=== PATIENT | female | born 1950 | race Two or more races ===

== ENCOUNTER → 2024-04-01 12:42 | Outpatient (REF) | payer OTHER, SELFPAY | LOC: PAVMRI 12:42 | PROVIDERS: ATTENDING PHYSICIAN Emergency Medicine | DX: R42 Dizziness and giddiness (principal); M54.2 Cervicalgia; R51.9 Headache, unspecified | CPT/HCPCS: 70544; 70547; 70553; A9575 ==

== ENCOUNTER → 2024-04-02 12:25 | Outpatient (REF) | payer OTHER, SELFPAY | LOC: PAVMRI 12:25 | PROVIDERS: ATTENDING PHYSICIAN Emergency Medicine | DX: M54.2 Cervicalgia (principal); R51.9 Headache, unspecified | CPT/HCPCS: 72156; A9575 ==

== ENCOUNTER → 2024-08-12 16:59 | Outpatient (REF) | payer OTHER, SELFPAY | LOC: RAD 16:59 | PROVIDERS: ATTENDING PHYSICIAN Obstetrics & Gynecology Gynecologic Oncology; FAMILY PHYSICIAN Emergency Medicine | DX: C54.1 Malignant neoplasm of endometrium (principal); R91.8 Other nonspecific abnormal finding of lung field | CPT/HCPCS: 71260; 74177; Q9967 ==

== ENCOUNTER 2024-09-21 19:16 | Inpatient (IN) | payer OTHER, SELFPAY ==
[2024-09-21] VITALS (12 sets, daily range): BP systolic 102–154; BP diastolic 40–91; PULSE 2–85; BMI 38.2; BMI 35.6
[2024-09-21 13:44] LABS: % Basophils 0.6 % (0-2); % Eosinophils 6.9 % (0-6); % Immature Granulocytes 0.4 % (0-0.5); % Lymphocytes 34.3 % (20.5-51.1); % Monocytes 7.3 % (1.7-9.3); % Neutrophils 50.5 % (42.2-75.2); Absolute Eosinophils 0.3 10^3/uL (0-0.7); Absolute Lymphocytes 1.7 10^3/uL (1.2-3.4); Absolute Monocytes 0.4 10^3/uL (0.1-0.6); Absolute Neutrophils 2.5 10^3/uL (1.4-6.5); Hematocrit 28.9 % (37.0-47.0); Hemoglobin 9.5 g/dL (12.0-16.0); Mean Corp Hgb Conc. 32.9 g/dL (33.0-37.0); Mean Corpuscular Hgb 32.5 pg (27.0-31.0); Mean Platelet Volume 10.8 fL (7.4-10.4); Nucleated Red Blood Cells % 0 %; Platelet Count 91 10^3/uL (130-400); Red Blood Cell Count 2.92 10^6/uL (4.20-5.40); Red Cell Dist. Width 14.7 % (11.5-14.5)
[2024-09-21 13:53] LABS: ALT (SGPT) 21 U/L (0-35); AST (SGOT) 42 U/L (14-36); Albumin 3.5 g/dl (3.5-5.0); Alkaline Phosphatase 121 U/L (38-126); Blood Urea Nitrogen 13 mg/dl (7-17); Calcium 9.2 mg/dl (8.4-10.2); Carbon Dioxide 29 mmol/L (22-30); Chloride 102 mmol/L (98-107); Estimated Creatinine Clearance 36 ml/min; Glucose 136 mg/dl (70-99); Potassium 4.3 mmol/L (3.5-5.1); Sodium 139 mmol/L (135-145); Total Bilirubin 0.6 mg/dl (0.2-1.3); Total Protein 5.9 g/dl (6.3-8.2); eGFR 39.97
--- NOTE | 2024-09-21 14:08 | ED.GENMED ---
History of Present Illness
General
Chief Complaint: Change in Mental Status
Source: patient and family
Exam Limitations: none
Time Seen by Provider: 09/21/24 14:07
History of Present Illness
History of Present Illness:
74-year-old female presents with episodes of lethargy hypoxia ongoing low back pain. Son gave her a dose of his morphine 3 days ago for the back pain. Back pain started 2 weeks ago. Nontraumatic but occurred with lifting. Appears very
positional. Episode of syncope yesterday. Some nausea. Some vomiting recently. No fever chills chest pain. Shortness of breath is slightly worse than baseline. Has not been hospitalized in a few years. Stools have been normal.
Past History
Past History
ED Past Medical History: COPD, HTN, Hypercholesterolemia, NIDDM and Other (Known left bundle branch block)
ED Past Surgical History: Cholecystectomy, , Gynecological (Hysterectomy) and Orthopedic
Review of Systems
Review of Systems
All Other Systems: Not applicable
Constitutional: Denies fever or chills
Cardiac: Reports no symptoms
: Reports no symptoms
Phy Exam
Physical Exam
Physical Exam:
GENERAL: Alert and oriented in no apparent distress. Old for stated age
EYE: Orbits normal.
NECK: Supple, no significant adenopathy.
ENT: Pharynx without erythema
CARDIAC: Regular rate and rhythm without any obvious murmurs.
LUNGS: Clear breath sounds,normal. 4 L nasal lace.
ABDOMEN: Soft, without focal tenderness or distention show heme-negative
NEUROLOGICAL: Alert and oriented , grossly non-focal. Lower extremity strength intact. Generally weak however. This is not focal
SKIN: Warm and dry, no rash or lesion, no discoloration, skin intact.
MUSCULOSKELETAL: No edema,no deformity.Good color. Significant low back pain with attempted sitting up twisting and turning.
PSYCH: Normal and appropriate interaction.
Course
Orders/Labs/Results
Orders:
Orders
09/21/24 13:02
ECG [Electrocardiogram (*1)] Urgent
Reason for Study: Fatigue / Weakness
EKG- Treatment ONCE
09/21/24 13:14
Complete Blood Count/With Diff Urgent
Comprehensive Metabolic Panel Urgent
09/21/24 14:20
CT Abd/pel Without Iv Or Oral Urgent
Comment:
Reason For Exam: Low back pain/nausea vomiting
CXR2 [CR Chest - 2 Views ] Urgent
Comment:
Reason For Exam: sob
09/21/24 14:27
Troponin I Urgent
Urinalysis Reflex To Culture Urgent
Date Specimen was Collected: 09/21/24
Time Specimen was Collected: 14:23
Urine Microscopic Reflex Cult Urgent
Venous Blood Gas Urgent
%Oxygen/Room Air: 4l
Urine Culture Urgent
PAULINE Source: U
Specimen Description:
Date Specimen was Collected: 09/21/24
Time Specimen was Collected: 14:23
09/21/24 19:01
Admit/Transfer Patient As Directed
Co-Sign Provider:
Level of Care: Inpatient admission
Assign to:: Telemetry
Physician / Group: nithin
Diagnosis: back pain, hypercarbia
Reason for Telemetry: Arrhythmia
Date to Stop Telemetry: 09/24/24
Time to Stop Telemetry: 11:00
Reason for Hospitalization: back pain, hypercarbia
Expected length of stay greater than two midnights?: Yes
ELOS- Estimated Length of Stay in days: 2
I certify the patient meets the requirements for IP care: Yes
Code Status As Directed
Resuscitation Status: Full Code
PRN Pain Medication Management As Directed
May give lesser potent ordered pain med per pt: Yes
preference::
Protocol:: Medication orders for pain may be administered in a
manner that supports deferring to patient preference
when the pt is:
- Requesting an ordered lesser potent pain medication.
Least to most potent pain medications are defined
as: acetaminophen < NSAID < tramadol < opioids
(morphine, oxycodone, hydromorphone).
- Requesting a lesser dose of the same medication IF
ORDERED.
- Requesting a less intrusive route of administration
if both routes are prescribed by the provider (PO <
IV).
09/24/24 11:00
DC Protocol for Telemetry ONCE
Abnormal Lab Results
09/21/24 09/21/24
13:14 14:27
RBC 2.92 L 10^6/uL
(4.20-5.40)
Hgb 9.5 L g/dL
(12.0-16.0)
Hct 28.9 L %
(37.0-47.0)
MCH 32.5 H pg
(27.0-31.0)
MCHC 32.9 L g/dL
(33.0-37.0)
RDW 14.7 H %
(11.5-14.5)
Plt Count 91 L 10^3/uL
(130-400)
MPV 10.8 H fL
(7.4-10.4)
Eosinophils % 6.9 H %
(0-6)
VBG pCO2 55 H mmHg
(35-48)
VBG pO2 72 H mmHg
(30-50)
VBG HCO3 29.0 H mmol/L
(22-27)
Creatinine 1.4 H mg/dL
(0.6-1.0)
Glucose 136 H mg/dl
(70-99)
AST 42 H U/L
(14-36)
Total Protein 5.9 L g/dl
(6.3-8.2)
Leukocyte Esterase Rfl 1+ A
(Negative)
Urine RBC 3-6 A /HPF
(0-2)
09/21/24 13:14
09/21/24 13:14
Vital Signs
Initial and Last Documented VS:
Initial Vital Signs
Temp Pulse Resp BP Pulse Ox
98.5 F 85 20 116/57 93
09/21/24 12:56 09/21/24 12:56 09/21/24 12:56 09/21/24 12:56 09/21/24 12:56
Last Documented Vital Signs
Temp Pulse Resp BP Pulse Ox
98.5 F 89 25 102/44 97
09/21/24 12:56 09/21/24 18:00 09/21/24 18:00 09/21/24 18:00 09/21/24 18:00
MDM/Problems Addressed
Differential Diagnosis Includes:
Large differential. Patient with some lethargy recently and some hypoxia. This may be related to CO2. She was given a dose of morphine that is not hers 3 days ago. We will check a VBG. She is in no respiratory distress and oxygen saturations
are 94% on her 4 L now. Will check a chest x-ray. She has a known left bundle branch block. We will check a troponin for completeness. She is anemic but her rectal exam is negative. We have no comparison labs. Back pain appears very
musculoskeletal but with some nausea vomiting we will get a CT scan which will also evaluate the lumbar spine. This may end up being an ADL issue. Workup in progress
*EKG
Interpreted by ED Provider?: Yes
Interpretation: abnormal
Comparison EKG: no comparison EKG present
Heart Rate: 86
Rate: normal
Rhythm: sinus
Ethel: normal axis
Interval: normal interval
QRS Pattern: left bundle branch block
Ischemia: no ischemia
*Critical Care Note
Total Time (30-74mins, 75-104mins- exclusive of procedures): Not Applicable
ED Attending Note
-
Portions of this chart may have been created with voice recognition software.� Occasional wrong word or��sound alike� substitutions may have occurred due to the inherent limitations of voice recognition software.
Discharge Plan
Departure
Patient Disposition: Admit
Date of Disposition: 09/21/24
Time of Disposition: 18:13
Presentation/result/management discussed w/ accepting MD/DO: Hospitalist
Discharge Problem:
Intractable back pain, Lethargy, anemia, Chronic CO2 retention
Interventions
Interventions:
*Risk Screen - Suicide Last Done: 09/21/24 12:56
*General Assessment Last Done: 09/21/24 12:56
*Neglect/Abuse Screening Last Done: 09/21/24 12:56
*ED- Fall Risk Assessment Last Done: 09/21/24 17:15
*ED COVID-19 Vaccine History Last Done: 09/21/24 13:45
ED- Neurological Assessment Last Done: 09/21/24 13:45
ED Swallowing Screen Last Done: 09/21/24 17:06
[2024-09-21 14:44] LABS: Venous Blood Gas B.E. 2.4 mmol/L (-4 to +4); Venous Blood Gas O2 Sat % 94.2 %; Venous Blood Gas pCO2 55 mmHg (35-48); Venous Blood Gas pH 7.33 (7.32-7.43); Venous Blood Gas pO2 72 mmHg (30-50)
[2024-09-21 14:47] LABS: Urine Albumin Negative (Neg - Trace); Urine Bilirubin Negative (Negative); Urine Character Clear (Clear); Urine Color Yellow; Urine Glucose Negative (Negative); Urine Ketone Negative (Negative); Urine Leukocyte 1+ (Negative); Urine Nitrite Negative (Negative); Urine Occult Blood Negative (Negative); Urine Specific Gravity 1.015 (<1.030); Urine Urobilinogen Negative (Neg - 1+)
[2024-09-21 14:56] LABS: Urine Squamous Cell >30 /LPF (Few)
[2024-09-21 15:09] LABS: Troponin I 0.019 ng/ml
--- NOTE | 2024-09-21 19:08 | HPS.HSE ---
Addendum entered and electronically signed by Efra Olea MD 09/21/24 20:17:
Patient likely needs to be on BIPAP at night rather than CPAP. Also question if she truly needs to be on 4L oxygen since her normal O2 saturation 95 which is too high for her. Hold off on pulmonary consult.
Original Note:
Family Physician
-
Family Physician: Dora Patterson MD
Chief Complaint
-
syncopal episodes, back pain
History of Present Illness
75-year-old female past medical history of COPD on 4 L baseline, hypertension, obstructive sleep apnea on CPAP left bundle branch block, hypercholesteremia, diabetes, epistaxis, presenting with back pain. She was lifting something heavy 2 weeks ago
strained her lower back. She is having pain across her lower back rating down her legs a little bit. She normally ambulates with a walker but has required assistance from her sons to ambulate. Her son gave her tiny piece of his morphine tablet
once 3 days ago for back pain. Her oxygen level has been slightly lower on 4 L around 87%.
She did have some vomiting over the past few days. No diarrhea or abdominal pain.
She has been having frequent headaches. She feels dizzy upon standing.
Over the past few days she has been more lethargic to wake up and passing out intermittently. She does not have worsening shortness of breath or cough than usual. She denies any chest pain. Denies fevers or chills. No vomiting or diarrhea.
Medical History
Past Medical History
Past Medical History: Reports Other (COPD on 4 L baseline, hypertension, obstructive sleep apnea on CPAP left bundle branch block, hypercholesteremia, diabetes, epistaxis,)
Past Surgical History: Reports None
Social History
Tobacco: Non-smoker
Alcohol: None
Drug: None
Family History
Family History: Not pertinent
Allergies / Home Medications
Allergies reflects when Allergies were last updated in [facility].
Home Medications with original date entered in [facility]
Allergy/Medication List:
Allergies
Allergy/AdvReac Type Severity Reaction Status Date / Time
heparin Allergy Severe Anaphylaxis Verified 09/21/24 12:55
fish oil Allergy Mild Rash Verified 09/21/24 12:55
Review of Systems
-
History Source: Patient
A 12 point ROS was completed and negative except as noted: Yes
Constitutional: Reports No Symptoms
EENT: Reports No Symptoms
Respiratory: Reports No Symptoms
Cardiac: Reports No Symptoms
Abdomen/GI: Reports No Symptoms
: Reports No Symptoms
Musculoskeletal: Reports No Symptoms
Skin: Reports No Symptoms
Neurological: Reports No Symptoms
Endocrine: Reports No Symptoms
Hematologic/Lymphatic: Reports No Symptoms
Psych: Reports No Symptoms
Physical Exam
Vital Signs
Vital Signs
Temp Pulse Resp BP Pulse Ox
98.5 F 89 25 102/44 97
09/21/24 12:56 09/21/24 18:00 09/21/24 18:00 09/21/24 18:00 09/21/24 18:00
Physical Exam
General: Well Developed, Well Nourished and No Apparent Distress
HEENT: NormoCephalic, Moist mucous membranes and Atraumatic
Respiratory: Clear
Cardiac: S1/S2 and Regular Rhythm; No Murmur or Rub
GI: Soft, Non Tender, Non Distended and Normal Bowel Sounds; No Organomegaly
Rectal: Deferred by Provider
Musculoskeletal: No Clubbing, No Cyanosis and No Edema
Skin: No Rash
Neuro: Nonfocal/grossly intact
Laboratory Results
-
09/21/24 13:14
09/21/24 13:14
Laboratory Results
Total Bilirubin 0.6 mg/dl (0.2-1.3) 09/21/24 13:14
AST 42 U/L (14-36) H 09/21/24 13:14
ALT 21 U/L (0-35) 09/21/24 13:14
Alkaline Phosphatase 121 U/L (38-126) 09/21/24 13:14
Troponin I 0.019 ng/ml 09/21/24 14:27
Data Reviewed
-
Lab Data: Labs Reviewed by me
Old Records: Reviewed
Impression/Plan
-
IMPRESSION:
PLAN:
# Acute lower back pain likely muscle strain
-CT abdomen pelvis does not show any abnormality
-Continue Tylenol, ibuprofen, gabapentin
-Lidocaine patch
-difficult situation as cannot use narcotics due to concern for intermittent hypercarbia
# Lethargy/syncopal episodes concerning for intermittent hypercarbia likely due to worsening COPD/obstructive sleep apnea
-Has been awake and alert here
-Urinalysis unremarkable
-Chest x-ray unremarkable
-Telemetry
-VBG shows pH of 7.33, pCO2 of 55, pO2 of 72, bicarb of 29 indicating chronic compensated hypercarbic respiratory failure
-Urinalysis unremarkable
-Already uses CPAP at night
-May need long-acting beta agonist/steroid inhaler
-May need pulmonary input
# Headache/dizziness possibly secondary to hypercarbia
-Check orthostatic vital signs
-Patient has outpatient
COPD on 4 L baseline
Obstructive sleep apnea
-Uses CPAP at night
# Acute kidney injury versus CKD
-Creatinine 1.4, no prior for comparison
-Gentle IV fluids
Thrombocytopenia
-Unknown chronicity
-Platelets of 91
Macrocytic anemia
-Hemoglobin 9.5
History of epistaxis
Full code
DVT prophylaxis�heparin
Regular diet
[2024-09-21] MEDS: NSS 1000 IV (23:10)
[2024-09-21] MEDS: COREG 3.125 MG PO (23:45)
[2024-09-21] MEDS: ZYLOPRIM 100 MG PO (23:46)
[2024-09-21] MEDS: NEUTRA-PHOS POWDER PACKET 250 MG PO (23:46)
[2024-09-21] MEDS: NEURONTIN 600 MG PO (23:46)
[2024-09-22] VITALS (10 sets, daily range): BP systolic 91–154; BP diastolic 46–72; PULSE 2–71; BMI 35.7
[2024-09-22 07:01] LABS: % Basophils 0.5 % (0-2); % Eosinophils 8.5 % (0-6); % Immature Granulocytes 0.5 % (0-0.5); % Lymphocytes 35.7 % (20.5-51.1); % Monocytes 8.3 % (1.7-9.3); % Neutrophils 46.5 % (42.2-75.2); Absolute Eosinophils 0.3 10^3/uL (0-0.7); Absolute Lymphocytes 1.4 10^3/uL (1.2-3.4); Absolute Monocytes 0.3 10^3/uL (0.1-0.6); Absolute Neutrophils 1.8 10^3/uL (1.4-6.5); Hematocrit 27.1 % (37.0-47.0); Hemoglobin 9.1 g/dL (12.0-16.0); Mean Corp Hgb Conc. 33.6 g/dL (33.0-37.0); Mean Corpuscular Hgb 32.6 pg (27.0-31.0); Mean Corpuscular Volume 97.1 fL (81.0-99.0); Mean Platelet Volume 10.9 fL (7.4-10.4); Nucleated Red Blood Cells % 0 %; Platelet Count 82 10^3/uL (130-400); Red Blood Cell Count 2.79 10^6/uL (4.20-5.40); Red Cell Dist. Width 14.6 % (11.5-14.5); White Blood Cell Count 3.9 10^3/uL (4.8-10.8)
[2024-09-22 07:29] LABS: ALT (SGPT) 15 U/L (0-35); AST (SGOT) 28 U/L (14-36); Alkaline Phosphatase 108 U/L (38-126); Blood Urea Nitrogen 14 mg/dl (7-17); Calcium 8.6 mg/dl (8.4-10.2); Carbon Dioxide 29 mmol/L (22-30); Chloride 106 mmol/L (98-107); Estimated Creatinine Clearance 37 ml/min; Glucose 102 mg/dl (70-99); Potassium 3.6 mmol/L (3.5-5.1); Sodium 141 mmol/L (135-145); Total Bilirubin 0.6 mg/dl (0.2-1.3); Total Protein 5.2 g/dl (6.3-8.2); eGFR 43.69
[2024-09-22] MEDS: DEPAKOTE ER (24 HR RELEASE) 1000 MG PO (09:17)
[2024-09-22] MEDS: CELEXA 10 MG PO (09:17)
[2024-09-22] MEDS: LASIX 40 MG PO (09:17)
[2024-09-22] MEDS: LIPITOR 20 MG PO (09:18)
[2024-09-22] MEDS: SEROQUEL 100 MG PO (09:18)
[2024-09-22] MEDS: PROTONIX 40 MG PO (09:18)
[2024-09-22] MEDS: VITAMIN D3 (cholecalciferol) 25 MCG PO (09:18)
[2024-09-22] MEDS: KCL 20 MEQ PO ×2 (09:18→19:58)
[2024-09-22] MEDS: ZYLOPRIM 100 MG PO ×2 (09:18→19:58)
[2024-09-22] MEDS: NEURONTIN 600 MG PO ×3 (09:18→21:12)
[2024-09-22] MEDS: COREG 3.125 MG PO ×2 (09:19→19:57)
[2024-09-22] MEDS: LIDOCAINE 4% PATCH 1 PATCH TOPICAL (09:19)
[2024-09-22] MEDS: NEUTRA-PHOS POWDER PACKET 250 MG PO ×2 (09:19→19:58)
[2024-09-22] MEDS: FOLVITE 1 MG PO (09:19)
[2024-09-22] MEDS: NSS 1000 IV (12:04)
[2024-09-22] MEDS: FLEXERIL 5 MG PO (13:04)
[2024-09-22] MEDS: TYLENOL 650 MG PO (13:04)
[2024-09-22] MEDS: REFRESH EYE DROPS (PF) 1 DROPS OPHTH ×2 (13:36→17:59)
[2024-09-22] MEDS: ProAIR HFA INHALER 1 PUFF INH (14:32)
--- NOTE | 2024-09-22 15:14 | W.PN.HOSP.TC ---
Today's Communication/Plan
-
see outlined plan
Assessment / Plan
Assessment / Plan
Assessment:
Acute lower back pain likely muscle strain
- CT abdomen pelvis does not show any abnormality
- continue Tylenol, ibuprofen, gabapentin
- continue lidocaine patch
- continue Flexeril prn
- would avoid Narcotics due to hypercarbia
Lethargy/syncopal episodes concerning for intermittent hypercarbia likely due to worsening COPD/obstructive sleep apnea
- Has been awake and alert here
- Urinalysis unremarkable
- Chest x-ray unremarkable
- VBG shows pH of 7.33, pCO2 of 55, pO2 of 72, bicarb of 29 indicating chronic compensated hypercarbic respiratory failure. continue BiPAP/CPAP at night
- outpatient pulmonary follow up
Headache/dizziness possibly secondary to hypercarbia
- check orthostatic vital signs
- PT/OT
COPD on 4 L baseline
- titrate O2 to 90-94% sats
Obstructive sleep apnea
- continue BiPAP/CPAP at night
Acute kidney injury versus CKD
- Creatinine 1.4, no prior for comparison
- Gentle IV fluids
Thrombocytopenia
- Unknown chronicity
- Platelets of 91
Macrocytic anemia
- hemoglobin 9.5
History of epistaxis
DVT ppx: SC heparin
Code: Full
Anticipated Discharge: 24 - 48 hours
Subjective/Interval History
-
Date of Service: September 22, 2024
denies any new complaints at present
Objective Data
-
Labs:
Laboratory Results
09/22/24
06:42
WBC 3.9 L
Hgb 9.1 L
Hct 27.1 L
Plt Count 82 L
Sodium 141
Potassium 3.6
Chloride 106
Carbon Dioxide 29
BUN 14
Creatinine 1.3 H
Glucose 102 H
Calcium 8.6
Total Bilirubin 0.6
AST 28
ALT 15
Alkaline Phosphatase 108
Vital Signs:
Vital Signs
Temp Pulse Resp BP Pulse Ox
98.7 F 78 18 94/72 93
09/22/24 11:07 09/22/24 14:37 09/22/24 14:37 09/22/24 11:07 09/22/24 14:37
I&O
09/21/24 09/22/24 09/23/24
06:59 06:59 06:59
Intake Total 1040 / 1040
Balance 1040 / 1040
Physical Exam
-
General: No Apparent Distress
HEENT: Normocephalic and Atraumatic
Respiratory: Negative Wheezes
Cardiac: Regular Rhythm and S1/S2
GI: Soft
Genito-urinary: No Costovertebral Tender
Neuro: AO x 3
Psych: Calm
Data Reviewed
-
Total Time Spent with Patient (in minutes): 41
Labs: Labs Reviewed by me
--- NOTE | 2024-09-22 15:57 | CM ---
Patient seen at bedside. Patient stated that she lives in a trailer with 4 steps to enter. Patient has a walker and a cane. Patient Lives with her 2 sons. Patient had home O2, and CPAP. Patient PDP is Dr. Patterson and she uses [facility] on [id number]
Patient would like to go home with VN, watch for PT assessment. Patient uncertain of her O2 provider. Patient son states that the O2 is from [facility] and she has a CPAP as well as a concentrator 5 liters. CM will continue to follow for
discharge planning needs.
Plan; home with VN vs SNF; watch for home O2 increased needs/Bipap changes.
[2024-09-22] MEDS: TYLENOL 1000 MG PO ×2 (17:59→21:12)
[2024-09-23] VITALS (8 sets, daily range): BP systolic 117–163; BP diastolic 48–67; PULSE 2–77; BMI 35.6
[2024-09-23] MEDS: NSS 1000 IV (00:59)
[2024-09-23 06:53] LABS: Hematocrit 27.2 % (37.0-47.0); Mean Corp Hgb Conc. 33.1 g/dL (33.0-37.0); Mean Corpuscular Hgb 32.5 pg (27.0-31.0); Mean Corpuscular Volume 98.2 fL (81.0-99.0); Mean Platelet Volume 10.5 fL (7.4-10.4); Platelet Count 86 10^3/uL (130-400); Red Blood Cell Count 2.77 10^6/uL (4.20-5.40); Red Cell Dist. Width 14.6 % (11.5-14.5); White Blood Cell Count 3.1 10^3/uL (4.8-10.8)
[2024-09-23 07:09] LABS: Blood Urea Nitrogen 15 mg/dl (7-17); Calcium 8.7 mg/dl (8.4-10.2); Carbon Dioxide 26 mmol/L (22-30); Chloride 111 mmol/L (98-107); Estimated Creatinine Clearance 37 ml/min; Glucose 117 mg/dl (70-99); Potassium 4.2 mmol/L (3.5-5.1); Sodium 145 mmol/L (135-145); eGFR 43.69
--- NOTE | 2024-09-23 09:27 | W.PN.HOSP.TC ---
Today's Communication/Plan
-
Flexeril to HS
continue HS and prn BiPAP
VN consult
DC planning
Assessment / Plan
Assessment / Plan
Assessment:
Acute lower back pain likely muscle strain
- CT abdomen pelvis does not show any abnormality
- continue Tylenol, ibuprofen, gabapentin
- continue lidocaine patch
- continue Flexeril hs
- would avoid Narcotics due to hypercarbia
Lethargy/syncopal episodes concerning for intermittent hypercarbia likely due to worsening COPD/obstructive sleep apnea
- Has been awake and alert here
- Urinalysis unremarkable
- Chest x-ray unremarkable
- VBG shows pH of 7.33, pCO2 of 55, pO2 of 72, bicarb of 29 indicating chronic compensated hypercarbic respiratory failure. continue BiPAP/CPAP at night
- outpatient pulmonary follow up
Headache/dizziness possibly secondary to hypercarbia
- check orthostatic vital signs
- PT/OT - SNF recommended, but patient refuses. Accepts home/VN.
COPD on 4 L baseline
- titrate O2 to 90-94% sats
Obstructive sleep apnea
- continue BiPAP/CPAP at night
Acute kidney injury versus CKD
- Creatinine 1.3, no prior for comparison
- cap IVF
Thrombocytopenia
- Unknown chronicity
- Platelets of 86
Macrocytic anemia
- hemoglobin 9.0
History of epistaxis
DVT ppx: SC heparin
Code: Full
Anticipated Discharge: Within 24 hours
Subjective/Interval History
-
Date of Service: September 23, 2024
reports significant improvement with Flexeril
used BiPAP all night, slept well no complaints
Objective Data
-
Labs:
Laboratory Results
09/23/24
06:30
WBC 3.1 L
Hgb 9.0 L
Hct 27.2 L
Plt Count 86 L
Sodium 145
Potassium 4.2
Chloride 111 H
Carbon Dioxide 26
BUN 15
Creatinine 1.3 H
Glucose 117 H
Calcium 8.7
Vital Signs:
Vital Signs
Temp Pulse Resp BP Pulse Ox
97.7 F 69 20 140/58 97
09/23/24 07:35 09/23/24 07:35 09/23/24 07:35 09/23/24 07:35 09/23/24 07:35
I&O
09/22/24 09/23/24 09/24/24
06:59 06:59 06:59
Intake Total 1040 / 1040 1800 / 1800
Balance 1040 / 1040 1800 / 1800
Physical Exam
-
General: No Apparent Distress
HEENT: Normocephalic, Atraumatic and Deaf
Respiratory: Negative Wheezes
Cardiac: Regular Rhythm and S1/S2
GI: Soft
Genito-urinary: No Costovertebral Tender
Neuro: AO x 3
Hematologic / Lymphatic: No Lymphadenopathy
Psych: Calm
Data Reviewed
-
Total Time Spent with Patient (in minutes): 41
Labs: Labs Reviewed by me
[2024-09-23] MEDS: LIDOCAINE 4% PATCH 1 PATCH TOPICAL (09:42)
[2024-09-23] MEDS: NEUTRA-PHOS POWDER PACKET 250 MG PO ×2 (09:43→20:38)
[2024-09-23] MEDS: TYLENOL 1000 MG PO ×3 (09:43→21:30)
[2024-09-23] MEDS: DEPAKOTE ER (24 HR RELEASE) 1000 MG PO (09:43)
[2024-09-23] MEDS: LIPITOR 20 MG PO (09:44)
[2024-09-23] MEDS: CELEXA 10 MG PO (09:44)
[2024-09-23] MEDS: KCL 20 MEQ PO ×2 (09:44→20:38)
[2024-09-23] MEDS: ZYLOPRIM 100 MG PO ×2 (09:44→20:38)
[2024-09-23] MEDS: NEURONTIN 600 MG PO (09:44)
[2024-09-23] MEDS: SEROQUEL 100 MG PO (09:44)
[2024-09-23] MEDS: VITAMIN D3 (cholecalciferol) 25 MCG PO (09:44)
[2024-09-23] MEDS: FOLVITE 1 MG PO (09:44)
[2024-09-23] MEDS: COREG 3.125 MG PO ×2 (09:45→20:38)
[2024-09-23] MEDS: LASIX 40 MG PO (09:45)
[2024-09-23] MEDS: DESENEX/MITRAZOL/ZEASORB 1 APPLIC TOPICAL (09:45)
[2024-09-23] MEDS: PROTONIX 40 MG PO (09:46)
--- NOTE | 2024-09-23 11:35 | CM ---
Met with patient and family bedside.
PT recommending skilled rehab, patient and family declined due to a bad experience.
Patient lives with son Carlos, other family member Johnnie stays with patient during the day and assists.
Patient and family agreeable to VN.
Patient and family aware of probable d/c home tomorrow, Johnnie will transport- please contact at [phone].
Family will supply oxygen.
IMM reviewed and signed.
Plan: home with [facility]
--- NOTE | 2024-09-23 14:03 | VNURNOTE ---
Home health liaison met with patient and son Carlos to discuss VN services, visit scheduling/frequency, homebound status and pet policy. Patient understands home visits will be 1-2 times a week to assess and teach medical management. Patient
aware a visiting nurse will contact Carlos for start of care within 1-2 days after discharge from . [facility] Referral completed in care port.
[2024-09-23] MEDS: TYLENOL 650 MG PO (14:48)
--- NOTE | 2024-09-23 15:36 | PN.CDI ---
CDI
- -
CDI:
Physician Documentation Request
Admit Date: 09/21/24 19:16
Dear Doctor Samuel,
Please review the following and provide your response in the progress notes.
Clinical Indicators:
Pt admitted with Lethargy/syncopal episodes concerning for intermittent hypercarbia likely due to worsening COPD/obstructive sleep apnea
Documented in the record, ' Obstructive sleep apnea continue BiPAP/CPAP at night...'
BMI 35.6
Laboratory Tests
09/21/24
14:27
VBG pCO2 55 H
VBG pO2 72 H
VBG HCO3 29.0 H
If possible, please provide an associated diagnosis related the documented hypercarbia / BMI:
Obesity with JHONATAN/OHS
Obesity with JHONATAN only
Other ( please specify)
Use of terms such as suspected, likely, concern for, or probable (associated with a specific diagnosis that is being evaluated, monitored, or treated as if it exists) are acceptable and can be coded in the inpatient setting, when documented at the
time of discharge.
Thank you,
Luda Taylor RN
CDI Specialist
[place] [facility]
Please use your independent medical judgment in providing your response.
[2024-09-23] MEDS: NEURONTIN 300 MG PO ×2 (18:27→21:30)
[2024-09-23] MEDS: FLEXERIL 5 MG PO (21:30)
[2024-09-24 02:25] VITALS: PULSE 2
[2024-09-24 03:00] VITALS: BP 177/80
[2024-09-24 07:10] VITALS: BP 147/59
--- NOTE | 2024-09-24 08:19 | W.PN.HOSP.TC ---
Today's Communication/Plan
-
dc to home/VN today
PCP f/u 1 week
Assessment / Plan
Assessment / Plan
Assessment:
Acute lower back pain likely muscle strain
- CT abdomen pelvis does not show any abnormality
- continue Tylenol, ibuprofen, gabapentin
- continue lidocaine patch
- continue Flexeril hs
- would avoid Narcotics due to hypercarbia
Lethargy/syncopal episodes concerning for intermittent hypercarbia likely due to worsening COPD/obstructive sleep apnea
- Has been awake and alert here
- Urinalysis unremarkable
- Chest x-ray unremarkable
- VBG shows pH of 7.33, pCO2 of 55, pO2 of 72, bicarb of 29 indicating chronic compensated hypercarbic respiratory failure. continue BiPAP/CPAP at night
- outpatient pulmonary follow up
Headache/dizziness possibly secondary to hypercarbia
- PT/OT - SNF recommended, but patient refuses. Accepts home/VN.
COPD on 4 L baseline
- titrate O2 to 90-94% sats
Obstructive sleep apnea/OHS in setting of obesity
- continue BiPAP/CPAP at night
Acute kidney injury versus CKD
- Creatinine 1.3, no prior for comparison
- cap IVF
Thrombocytopenia
Macrocytic anemia
- Unknown chronicity
- outpatient hematology eval
History of epistaxis
DVT ppx: SC heparin
Code: Full
More than 30 minutes spent in discharge including
Final examination of the patient
Summarizing hospital stay
Instructions for continuing care to all relevant caregivers
Preparation of discharge records, prescriptions, and referral forms
Total time spent (in minutes): 41
Anticipated Discharge: Today
Subjective/Interval History
-
Date of Service: September 24, 2024
resting well, no complaints
Objective Data
-
Vital Signs:
Vital Signs
Temp Pulse Resp BP Pulse Ox
97.4 F 72 15 177/80 94
09/24/24 03:00 09/24/24 03:00 09/24/24 03:00 09/24/24 03:00 09/24/24 03:00
I&O
09/23/24 09/24/24 09/25/24
06:59 06:59 06:59
Intake Total 1800 / 1800 720 / 720
Balance 1800 / 1800 720 / 720
Physical Exam
-
General: No Apparent Distress
HEENT: Normocephalic and Atraumatic
Respiratory: Negative Wheezes
Cardiac: Regular Rhythm and S1/S2
GI: Soft
Genito-urinary: No Costovertebral Tender
Neuro: AO x 3
Psych: Calm
Data Reviewed
-
Total Time Spent with Patient (in minutes): 42
Labs: Labs Reviewed by me
[2024-09-24] MEDS: LIDOCAINE 4% PATCH 1 PATCH TOPICAL (09:18)
[2024-09-24] MEDS: LASIX 40 MG PO (09:19)
[2024-09-24] MEDS: VITAMIN D3 (cholecalciferol) 25 MCG PO (09:19)
[2024-09-24] MEDS: NEURONTIN 300 MG PO (09:19)
[2024-09-24] MEDS: PROTONIX 40 MG PO (09:20)
[2024-09-24] MEDS: CELEXA 10 MG PO (09:20)
[2024-09-24] MEDS: KCL 20 MEQ PO (09:20)
[2024-09-24] MEDS: ZYLOPRIM 100 MG PO (09:20)
[2024-09-24] MEDS: SEROQUEL 100 MG PO (09:20)
[2024-09-24] MEDS: LIPITOR 20 MG PO (09:20)
[2024-09-24] MEDS: FOLVITE 1 MG PO (09:20)
[2024-09-24] MEDS: NEUTRA-PHOS POWDER PACKET 250 MG PO (09:20)
[2024-09-24] MEDS: DEPAKOTE ER (24 HR RELEASE) 1000 MG PO (09:21)
[2024-09-24] MEDS: COREG 3.125 MG PO (09:21)
[2024-09-24] MEDS: TYLENOL 1000 MG PO (09:22)
[2024-09-24 10:00] VITALS: BMI 35.5
--- NOTE | 2024-09-24 11:12 | W.DS.TRANS ---
DC Summary - [employer]
-
Discharge Instructions:
Discharge Diagnosis/Procedures acute back pain from pulled muscle
Diet Regular
Activity As tolerated
Bathing Restrictions None
Other Services VN
Instructions:
Stand-Alone Forms:
Changes to Home Medications: Yes
Discharge Medications:
DC Medications w/original date entered in [facility]
albuterol sulfate 2.5 mg/3 mL (0.083 %) solution for nebulization 2.5 mg inhalation R DAILYPRN PRN sob 09/21/24
albuterol sulfate 90 mcg/actuation aerosol inhaler 2 inh inhalation R DAILYPRN PRN sob 09/21/24
allopurinol 100 mg tablet 100 mg PO BID 09/21/24
atorvastatin 20 mg tablet 20 mg PO DAILY 09/21/24
carvedilol 3.125 mg tablet 3.125 mg PO BID 09/21/24
cholecalciferol (vitamin D3) 25 mcg (1,000 unit) tablet 25 mcg PO DAILY 09/21/24
citalopram 10 mg tablet 10 mg PO DAILY 09/21/24
divalproex 500 mg tablet,extended release 24 hr 1,000 mg PO DAILY 09/21/24
folic acid 1 mg tablet 1 mg PO DAILY 09/21/24
furosemide 40 mg tablet 40 mg PO DAILY 09/21/24
metformin 500 mg tablet 500 mg PO TID 09/21/24
naproxen sodium 220 mg tablet (Aleve) 220 mg PO BID PRN mild pain 09/21/24
nystatin 100,000 unit/gram topical powder 1 applic topical DAILYPRN PRN rash 09/21/24
omeprazole 20 mg capsule,delayed release 20 mg PO DAILY 09/21/24
polyvinyl alcohol 1.4 % eye drops (Artificial Tears (polyvinyl alcohol)) 1 drp ophthalmic (eye) DAILYPRN PRN dry eyes 09/21/24
potassium chloride 20 mEq tablet,extended release 20 meq PO BID 09/21/24
quetiapine 100 mg tablet 100 mg PO DAILY 09/21/24
sodium chloride 0.65 % nasal spray aerosol (Saline Nasal) 1 spray intranasal DAILYPRN PRN dry sinuses 09/21/24
sodium di- and monophosphate-potassium phos monobasic 250 mg tablet (Y-Cidn-Kxnqble) 1 tab PO BID 09/21/24
tirzepatide 5 mg/0.5 mL subcutaneous pen injector (Mounjaro) 5 mg SC TH 09/21/24
acetaminophen 325 mg tablet 650 mg (2 x 325 mg) PO Q4HPRN PRN mild pain/fever>100.4 #100 tabs 09/24/24
acetaminophen 500 mg tablet (Tylenol Extra Strength) 1,000 mg (2 x 500 mg) PO TID #100 tabs 09/24/24
cyclobenzaprine 10 mg tablet 5 mg (1/2 x 10 mg) PO HS #14 tabs 09/24/24
gabapentin 300 mg capsule 300 mg PO TID #90 caps 09/24/24
lidocaine 4 % topical patch 1 patch topical DAILY #30 ea 09/24/24
Home Medication Changes
Gabapentin to TID 300mg
Pending Results: No
Total time spent discharging patient (in min): 41
[2024-09-24 11:25] VITALS: BP 119/65
[2024-09-24] MEDS: FLUAD (65 yr+) 2024-2025 FORMULA 0.5 ML IM (12:25)
--- NOTE | 2024-09-24 13:20 | CM ---
Patient for d/c home today with [facility].
family to provide oxygen.
Son Johnnie to transport.
--- NOTE | 2024-09-24 13:43 | PTCARENOTE ---
Discharge instructions reviewed with patient and family. Answered all questions. Tele and IV removed. Patient belongings packed. Flu vaccine administered. Awaiting son to transport home. Son will bring oxygen to transport. Vital signs stable.
[2024-09-24 15:10] VITALS: BP 140/66
[2024-09-24] MEDS: NEURONTIN PO (17:02)
[2024-09-24] MEDS: TYLENOL PO (17:02)
== END 2024-09-24 17:07 | disposition home health service (06) | DRG 189 ==
LOC: 4 EAST ACU 19:16
PROVIDERS: Student in an Organized Health Care Education/Training Program; ADMITTING PHYSICIAN Hospitalist; ATTENDING PHYSICIAN Internal Medicine; EMERGENCY PHYSICIAN Emergency Medicine; FAMILY PHYSICIAN Emergency Medicine
PROC: 5A09357 Assistance with Respiratory Ventilation, Less than 24 Consecutive Hours, Continuous Positive Airway Pressure (ICD-10-PCS; 2024-09-21)
PROC: 3E02340 Introduction of Influenza Vaccine into Muscle, Percutaneous Approach (ICD-10-PCS; 2024-09-24)
DX: J96.12 Chronic respiratory failure with hypercapnia (principal); E66.2 Morbid (severe) obesity with alveolar hypoventilation; N17.9 Acute kidney failure, unspecified; E87.29 Other acidosis; S39.012A Strain of muscle, fascia and tendon of lower back, initial encounter; J44.9 Chronic obstructive pulmonary disease, unspecified; Z68.35 Body mass index [BMI] 35.0-35.9, adult; D53.9 Nutritional anemia, unspecified; D69.6 Thrombocytopenia, unspecified; I10 Essential (primary) hypertension; I44.7 Left bundle-branch block, unspecified; X50.0XXA Overexertion from strenuous movement or load, initial encounter; E11.9 Type 2 diabetes mellitus without complications; E78.00 Pure hypercholesterolemia, unspecified; Z90.710 Acquired absence of both cervix and uterus; Z23 Encounter for immunization
CPT/HCPCS: 71046; 74176; 80048; 80053; 81003; 81015; 82805; 84484; 85025; 85027; 87086; 90662; 93005; 94640; 94660; 97162; 97167; 99285; G0008

== ENCOUNTER → 2024-09-29 14:39 | Outpatient (REF) | payer OTHER, SELFPAY | LOC: RCS 14:39 | PROVIDERS: ATTENDING PHYSICIAN Student in an Organized Health Care Education/Training Program; FAMILY PHYSICIAN Emergency Medicine | DX: I50.32 Chronic diastolic (congestive) heart failure (principal) | CPT/HCPCS: 93306 ==

== ENCOUNTER → 2024-12-11 14:35 | Outpatient (REF) | payer OTHER, SELFPAY ==
[2024-12-11 14:55] LABS: % Basophils 0.3 % (0-2); % Eosinophils 4.6 % (0-6); % Immature Granulocytes 0.5 % (0-0.5); % Lymphocytes 33.9 % (20.5-51.1); % Monocytes 7.4 % (1.7-9.3); % Neutrophils 53.3 % (42.2-75.2); Absolute Eosinophils 0.3 10^3/uL (0-0.7); Absolute Lymphocytes 2.2 10^3/uL (1.2-3.4); Absolute Monocytes 0.5 10^3/uL (0.1-0.6); Absolute Neutrophils 3.4 10^3/uL (1.4-6.5); Hematocrit 30.2 % (37.0-47.0); Hemoglobin 10.3 g/dL (12.0-16.0); Mean Corp Hgb Conc. 34.1 g/dL (33.0-37.0); Mean Corpuscular Hgb 33.3 pg (27.0-31.0); Mean Corpuscular Volume 97.7 fL (81.0-99.0); Mean Platelet Volume 12.2 fL (7.4-10.4); Platelet Count 107 10^3/uL (130-400); Red Blood Cell Count 3.09 10^6/uL (4.20-5.40); Red Cell Dist. Width 14.3 % (11.5-14.5); White Blood Cell Count 6.4 10^3/uL (4.8-10.8)
== END ==
LOC: OIDL 14:35
PROVIDERS: ATTENDING PHYSICIAN Internal Medicine Hematology & Oncology
DX: D69.6 Thrombocytopenia, unspecified (principal); D63.1 Anemia in chronic kidney disease; D50.9 Iron deficiency anemia, unspecified
CPT/HCPCS: 85025

== ENCOUNTER 2024-12-29 14:14 | Outpatient (REF) | payer OTHER, SELFPAY ==
[2024-12-29 14:33] LABS: % Basophils 0.1 % (0-2); % Immature Granulocytes 0.4 % (0-0.5); % Lymphocytes 24.7 % (20.5-51.1); % Monocytes 5.9 % (1.7-9.3); % Neutrophils 64.9 % (42.2-75.2); Absolute Eosinophils 0.3 10^3/uL (0-0.7); Absolute Lymphocytes 1.9 10^3/uL (1.2-3.4); Absolute Monocytes 0.5 10^3/uL (0.1-0.6); Hemoglobin 11.3 g/dL (12.0-16.0); Mean Corp Hgb Conc. 33.2 g/dL (33.0-37.0); Mean Corpuscular Hgb 34.7 pg (27.0-31.0); Mean Corpuscular Volume 104.3 fL (81.0-99.0); Mean Platelet Volume 10.3 fL (7.4-10.4); Platelet Count 93 10^3/uL (130-400); Red Blood Cell Count 3.26 10^6/uL (4.20-5.40); Red Cell Dist. Width 14.9 % (11.5-14.5); White Blood Cell Count 7.7 10^3/uL (4.8-10.8)
== END 2024-12-29 23:59 | disposition home or self-care (01) ==
LOC: OIDL 14:14
PROVIDERS: ATTENDING PHYSICIAN Internal Medicine Hematology & Oncology
DX: D69.6 Thrombocytopenia, unspecified (principal); D63.1 Anemia in chronic kidney disease; D50.9 Iron deficiency anemia, unspecified
CPT/HCPCS: 85025

== ENCOUNTER 2025-01-22 22:26 | Inpatient (IN) | payer OTHER, SELFPAY ==
[2025-01-22] VITALS (7 sets, daily range): BP systolic 93–143; BP diastolic 32–61; BMI 25.6
[2025-01-22 14:53] LABS: Hematocrit 32.3 % (37.0-47.0); Hemoglobin 10.4 g/dL (12.0-16.0); Mean Corp Hgb Conc. 32.2 g/dL (33.0-37.0); Mean Corpuscular Volume 104.5 fL (81.0-99.0); Nucleated Red Blood Cells % 0 %; Platelet Count 70 10^3/uL (130-400); Red Cell Dist. Width 15.3 % (11.5-14.5)
[2025-01-22 14:58] LABS: INR 1.09; PT 14.7 Sec (11.4-14.6)
[2025-01-22 14:59] LABS: APTT 23.8 Sec (23.4-35.0)
[2025-01-22 15:04] LABS: ALT (SGPT) 11 U/L (0-35); AST (SGOT) 27 U/L (14-36); Albumin 3.8 g/dl (3.5-5.0); Alkaline Phosphatase 126 U/L (38-126); Blood Urea Nitrogen 18 mg/dl (7-17); Calcium 9.1 mg/dl (8.4-10.2); Carbon Dioxide 28 mmol/L (22-30); Chloride 99 mmol/L (98-107); Glucose 77 mg/dl (70-99); Potassium 4.8 mmol/L (3.5-5.1); Sodium 137 mmol/L (135-145); Total Protein 6.2 g/dl (6.3-8.2); eGFR 29.57
[2025-01-22 15:14] LABS: Troponin I 0.014 ng/ml
--- NOTE | 2025-01-22 16:35 | ED.GENMED ---
History of Present Illness
General
Chief Complaint: Weakness
Source: patient
Exam Limitations: none
Time Seen by Provider: 01/22/25 16:24
Nursing documentation reviewed up to this point in time: agreed with
History of Present Illness
History of Present Illness:
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 Patient has been evaluated for
similar complaint, including an evaluation with paraprofessional interpreter who recommended iron infusion. Unfortunately, per family, patient's overall weakness has worsened since iron infusion. Patient currently requires both of her sons to assist with any
movement or ambulation. Patient also reports decreased appetite with constant nausea sensation and diarrhea. Denies headache or dizziness. Denies loss of sensation. Denies back pain. Denies urinary or bowel incontinence. Denies change in bowel
habits.
Past History
Past History
ED Past Medical History: COPD, HTN, Hypercholesterolemia, NIDDM and Other (Known left bundle branch block)
ED Past Surgical History: Cholecystectomy, , Gynecological (Hysterectomy) and Orthopedic
Review of Systems
Review of Systems
Allergies reviewed?: Yes
All Other Systems: ROS reviewed and negative except as documented in HPI and ROS
Constitutional: Reports no symptoms; Denies fever
Respiratory: Reports no symptoms
Cardiac: Reports no symptoms
ABD/GI: Reports abdominal pain, nausea and diarrhea
Musculoskeletal: Reports no symptoms
Skin: Reports no symptoms
Neurological: Reports weakness
Phy Exam
Physical Exam
Physical Exam:
Physical Exam
General: no apparent distress, not acutely ill. afebrile
Head: nc/at. eomi
Neck: supple. no meningeal signs.
Heart: s1/s2 regular rate and rhythm
Lungs: no acute respiratory distress. clear bilaterally
Abdomen: normal bowel sounds. mild RLQ tenderness to palpation. no distention
Neuro: alert and oriented x 3. no focal neurological deficits. resting tremor noted
Skin: no rash
Psychiatric: well kept. interactive and cooperative
Extremities: no edema. no calf tenderness.
Course
Orders/Labs/Results
Orders:
Orders
01/22/25 14:26
Electrocardiogram (*1) Urgent
Reason for Study: Other
Other Reason for Exam: Possible Stroke
EKG- Treatment ONCE
01/22/25 14:29
Complete Blood Count/With Diff Urgent
Comprehensive Metabolic Panel Urgent
PTT Urgent
Prothrombin Time Urgent
TSH Reflex To Free T4 Urgent
Comment: ADD ON
Troponin I Urgent
01/22/25 16:31
Add On- LAB Urgent
Tests Added?: TSH to reflex free T4
Urinalysis Reflex To Culture Urgent
01/22/25 16:32
Physical Therapy Consult [Pt Eval And Treat] Urgent
Activity Level: Ambulate
01/22/25 16:40
Iohexol [Omnipaque] See Protocol PO NOW STA
01/22/25 16:42
CT Abd/pel (oral only)-DH Only Urgent
Comment:
Reason For Exam: lower abdominal pain
0.9% Sodium Chloride 500 ml [Nss] 500 ml IV BOLUS
01/22/25 17:36
CT Head W/o Iv Contrast Urgent
Comment:
Reason For Exam: dizziness w falls and confusion
01/22/25 21:50
Add On- LAB Urgent
Tests Added?: divalproic acid level
01/22/25 21:57
Depakane Urgent
Comment: MUST BE COLLECTED. NEED A PLAIN RED.
01/22/25 22:02
Admit/Transfer Patient As Directed
Co-Sign Provider:
Level of Care: Inpatient admission
Assign to:: Medical/Surgical
Physician / Group: sonja weller
Diagnosis: acute colitis, memory impairment
Reason for Hospitalization: acute colitis, memory impairment
Expected length of stay greater than two midnights?: Yes
ELOS- Estimated Length of Stay in days: 4
I certify the patient meets the requirements for IP care: Yes
Code Status As Directed
Resuscitation Status: Full Code
01/22/25 22:09
PRN Pain Medication Management As Directed
May give lesser potent ordered pain med per pt: Yes
preference::
Protocol:: Medication orders for pain may be administered in a
manner that supports deferring to patient preference
when the pt is:
- Requesting an ordered lesser potent pain medication.
Least to most potent pain medications are defined
as: acetaminophen < NSAID < tramadol < opioids
(morphine, oxycodone, hydromorphone).
- Requesting a lesser dose of the same medication IF
ORDERED.
- Requesting a less intrusive route of administration
if both routes are prescribed by the provider (PO <
IV).
Abnormal Lab Results
01/22/25
14:29
RBC 3.09 L 10^6/uL
(4.20-5.40)
Hgb 10.4 L g/dL
(12.0-16.0)
Hct 32.3 L %
(37.0-47.0)
MCV 104.5 H fL
(81.0-99.0)
MCH 33.7 H pg
(27.0-31.0)
MCHC 32.2 L g/dL
(33.0-37.0)
RDW 15.3 H %
(11.5-14.5)
Plt Count 70 L 10^3/uL
(130-400)
MPV 11.3 H fL
(7.4-10.4)
PT 14.7 H Sec
(11.4-14.6)
BUN 18 H mg/dl
(7-17)
Creatinine 1.8 H mg/dL
(0.6-1.0)
Total Protein 6.2 L g/dl
(6.3-8.2)
01/22/25 14:29
01/22/25 14:29
Vital Signs
Initial and Last Documented VS:
Initial Vital Signs
Temp Pulse Resp BP Pulse Ox
98.8 F 64 16 93/41 96
01/22/25 14:22 01/22/25 14:22 01/22/25 14:22 01/22/25 14:22 01/22/25 14:22
Last Documented Vital Signs
Temp Pulse Resp BP Pulse Ox
98.8 F 79 16 143/61 92
01/22/25 14:22 01/22/25 18:10 01/22/25 14:22 01/22/25 19:52 01/22/25 19:52
MDM/Problems Addressed
MDM/Problems Addressed:
Pt evaluated by physical therapy - pt unsafe to be discharged home
CT report reviewed and discussed with patient and family. Patient's overall generalized weakness, likely contributed by colitis. Patient will be admitted for IV fluids and IV antibiotics.
*Pulse Oximetry
SaO2: 96
Nasal Cannula flow liters per minute: 4.5
Patient hypoxic: no
*Critical Care Note
Total Time (30-74mins, 75-104mins- exclusive of procedures): Not Applicable
ED Attending Note
-
Portions of this chart may have been created with voice recognition software.� Occasional wrong word or��sound alike� substitutions may have occurred due to the inherent limitations of voice recognition software.
Discharge Plan
Departure
Patient Disposition: Admit
Date of Disposition: 01/22/25
Time of Disposition: 21:05
Admit to: Med/Surg
Presentation/result/management discussed w/ accepting MD/DO: Hospitalist
Discharge Problem:
Colitis, Ambulatory dysfunction
Interventions
Interventions:
*Risk Screen - Suicide Last Done: 01/22/25 14:22
*General Assessment Last Done: 01/22/25 17:35
*Neglect/Abuse Screening Last Done: 01/22/25 14:22
*ED COVID-19 Vaccine History Last Done: 01/22/25 17:35
ED- Cardiac Assessment Last Done: 01/22/25 18:11
ED- Neurological Assessment Last Done: 01/22/25 18:11
ED- Pulmonary Assessment Last Done: 01/22/25 18:11
[2025-01-22] MEDS: OMNIPAQUE 50 ML PO (17:23)
[2025-01-22] MEDS: NSS 500 IV (17:55)
--- NOTE | 2025-01-22 21:11 | HPS.HSE ---
Family Physician
-
Family Physician: Dora Patterson MD
Chief Complaint
-
Decreased appetite, nausea, diarrhea, generalized weakness
History of Present Illness
74-year-old female with decreased appetite constant nausea and soft stools times several days 2 in the morning. They did give Imodium this morning and Gas-X. She is also had generalized weakness over the past 2 months was evaluated by hematology
who recommended iron infusions, which did not seem to help. Her 2 sons at bedside also state in the past month and a half she has had some confusion talking about getting her wedding dress when going to her wedding talking about people that have
. She currently confused her son was calling him Kashmir but his name is Carlos. She denies fever, chills, headache, sore throat, chest pain, palpitations, cough, urinary symptoms. He has past medical history of COPD 4 L nasal cannula
dependent, HTN, HLD, DM 2, LBBB, bipolar disorder, chronic back pain, herniated disks, fibromyalgia, tardive dyskinesia-with shaking hands and movement of tongue, GERD, insomnia, iron deficiency anemia, B12 anemia, obesity
Medical History
Past Medical History
Past Medical History: Reports Other
Additional Past Medical History:
COPD on 4 L baseline, hypertension, obstructive sleep apnea on CPAP left bundle branch block, hypercholesteremia, DM 2, epistaxis,
bipolar disorder, chronic back pain, herniated disks, fibromyalgia, tardive dyskinesia-with shaking hands and movement of tongue, GERD, insomnia, iron deficiency anemia, B12 anemia, obesity
Past Surgical History: Reports Other
Additional Past Surgical History:
section
Cholecystectomy
Hysterectomy
Social History
Tobacco: Non-smoker
Alcohol: None
Drug: None
Personal: Single
Living: With Family (With sons Johnnie and Carlos)
Family History
Family History: Other (Mother history of dementia)
Allergies / Home Medications
Allergies reflects when Allergies were last updated in [employer].
Home Medications with original date entered in [employer]
Allergy/Medication List:
Allergies
Allergies
Allergy/AdvReac Type Severity Reaction Status Date / Time
heparin Allergy Severe Anaphylaxis Verified 01/22/25 14:22
fish oil Allergy Mild Rash Verified 01/22/25 14:22
Home Medications
albuterol sulfate 2.5 mg/3 mL (0.083 %) solution for nebulization 2.5 mg inhalation R DAILYPRN PRN sob 09/21/24
albuterol sulfate 90 mcg/actuation aerosol inhaler 2 inh inhalation R Q4HPRN PRN sob 09/21/24
allopurinol 100 mg tablet 100 mg PO BID 09/21/24
atorvastatin 20 mg tablet 20 mg PO DAILY 09/21/24
carvedilol 3.125 mg tablet 3.125 mg PO BID 09/21/24
cholecalciferol (vitamin D3) 25 mcg (1,000 unit) tablet 25 mcg PO DAILY 09/21/24
citalopram 10 mg tablet 10 mg PO DAILY@189909/21/24
divalproex 500 mg tablet,extended release 24 hr 1,000 mg PO DAILY@189909/21/24
folic acid 1 mg tablet 1 mg PO DAILY 09/21/24
furosemide 40 mg tablet 40 mg PO DAILY 09/21/24
metformin 500 mg tablet 500 mg PO TIDWMEAL 09/21/24
naproxen sodium 220 mg tablet (Aleve) 220 mg PO BIDPRN PRN mild pain 09/21/24
omeprazole 20 mg capsule,delayed release 20 mg PO DAILY 09/21/24
polyvinyl alcohol 1.4 % eye drops (Artificial Tears (polyvinyl alcohol)) 1 drp BOTH EYES BIDPRN PRN dry eyes 09/21/24
potassium chloride 20 mEq tablet,extended release 20 meq PO BID 09/21/24
quetiapine 100 mg tablet 100 mg PO DAILY@189909/21/24
benztropine 1 mg tablet 1 mg PO BID 01/22/25
cyclobenzaprine 5 mg tablet 5 mg PO DAILY@1900 01/22/25
gabapentin 600 mg tablet 600 mg PO QID 01/22/25
ginkgo biloba 1 cap PO DAILY 01/22/25
lidocaine 5 % topical patch 1 - 3 patch topical DAILY lower back & B/L knees 01/22/25
loperamide 2 mg tablet (Anti-Diarrheal (loperamide)) 2 mg PO DAILYPRN PRN diarrhea 01/22/25
nystatin 100,000 unit/gram topical powder (Klayesta) 1 applic topical DAILYPRN PRN apply to abdomen 01/22/25
phenol-phenolate sodium lozenges 1 anoop mucous membrane Q1HPRN PRN sore throat 01/22/25
phenol-phenolate sodium mucosal aerosol spray 2 spray mucous membrane TIDPRN PRN sore throat 01/22/25
sodium chloride 0.65 % nasal spray aerosol (Saline Mist) 1 spray intranasal DAILYPRN PRN dry sinuses 01/22/25
sodium di- and monophosphate-potassium phos monobasic 250 mg tablet (Phospho-Emilie Neutral) 1 tab PO BID 01/22/25
Allergy/AdvReac Type Severity Reaction Status Date / Time
heparin Allergy Severe Anaphylaxis Verified 09/21/24 12:55
fish oil Allergy Mild Rash Verified 09/21/24 12:55
Review of Systems
-
History Source: Patient and Family (Sons Carlos and Johnnie at bedside)
A 12 point ROS was completed and negative except as noted: Yes
Constitutional: Reports Other (Increased confusion from baseline 1.5 months ago, fatigue, loose stools, decreased appetite); Denies Chills
EENT: Denies Sore Throat or Runny Nose
Respiratory: Denies Cough, Hemoptysis or Trouble Breathing
Cardiac: Denies Chest Pain, Diaphoresis, Palpitations or Syncope
Abdomen/GI: Reports Diarrhea (Loose stools soft per son no blood or mucus); Denies Abdominal Pain, Nausea, Vomiting, Constipated, Bloody Stools or Black Stools
: Denies Dysuria, Frequency, Flank Pain, Incontinence, Difficulty Voiding, Urgency or Bleeding
Musculoskeletal: Denies Joint Pain or Edema
Skin: Denies Itching or Rash
Neurological: Denies Dizzy or Headache
Endocrine: Reports No Symptoms
Hematologic/Lymphatic: Reports No Symptoms
Psych: Reports Calm
Physical Exam
Vital Signs
Vital Signs
Temp Pulse Resp BP Pulse Ox
98.8 F 79 16 143/61 92
01/22/25 14:22 01/22/25 18:10 01/22/25 14:22 01/22/25 19:52 01/22/25 19:52
Physical Exam
General: Comfortable, Conversant and Other (Episodic confusion called her son Carlos Marlow there is no Kashmir and the family however is oriented to year, president, [facility]); No Pain or Fever
HEENT: NormoCephalic, Anicteric, Moist mucous membranes, PERRLA, [place] Conjunctivae and No Ptosis
Respiratory: Clear; No Wheezes, Rales or Rhonchi
Cardiac: S1/S2 and Regular Rhythm; No Murmur, Rub, Gallop or Peripheral Edema
Breast: Deferred by me
GI: Soft, Non Distended, Normal Bowel Sounds, Tender (Left lower quadrant) and No Hepatosplenomegaly
Rectal: Deferred by Provider
Musculoskeletal: No Clubbing, No Cyanosis and No Edema
Skin: Warm and Dry; No Rash
Neuro: AO x 3 (Year, president, place however was confused called her son Carlos Marlow several times), No Motor Deficits, Nonfocal/grossly intact, Cranial Nerves Intact and No Sensory Deficits; No Tremors or Sedated
Psych: Calm
Laboratory Results
-
01/22/25 14:29
01/22/25 14:29
Laboratory Results
PT 14.7 Sec (11.4-14.6) H 01/22/25 14:29
INR 1.09 01/22/25 14:29
APTT 23.8 Sec (23.4-35.0) 01/22/25 14:29
Total Bilirubin 0.5 mg/dl (0.2-1.3) 01/22/25 14:29
AST 27 U/L (14-36) 01/22/25 14:29
ALT 11 U/L (0-35) 01/22/25 14:29
Alkaline Phosphatase 126 U/L (38-126) 01/22/25 14:29
Troponin I 0.014 ng/ml 01/22/25 14:29
Impression/Plan
-
Impression/plan:
Admit to MedSurg
#Acute sigmoid colitis
Patient has soft stools 2-3 times in the a.m. will take Imodium for this
- Clear liquid diet
-
- Follow CBC, BMP
- Consult GI
- Hold Imodium
- PT/OT eval
CT abdomen pelvis oral contrast only:
1. Acute uncomplicated sigmoid colitis, likely of infectious/inflammatory etiology.
2. Mild to moderate diffuse colonic stool burden may reflect constipation.
3. Borderline splenomegaly.
#Colonic stool burden likely due to use of Imodium
-Hold Imodium
- give miralax
#Raman
creat 1.8
0.9 nss 60 cc/hr
hold lasix ,mtformin, naprosyn
#Cognitive impairment likely early dementia patient family member mother dementia
Progressive decline in memory over the past 1.5 months forgetting things today called her son Kashmir when his name is Carlos has been talking about getting her wedding down on earlier today thought she saw all stool on the sheets per family
- Patient started ginkgo biloba approximately 1 month ago
#HTN
-Continue carvedilol 3.125 mg twice daily
#Chronic anemia�macrocytic B12 anemia
#Iron deficiency anemia�patient has followed with hematology was recommended iron transfusions but feels did not work
Hgb 10.4 appears near baseline
- Continue B12 supplement
#Chronic thrombocytopenia possibly splenomegaly
Plt 70 baseline 70�107
#COPD 4 L nasal cannula dependent
- Continue albuterol inhaler
#JHONATAN
Full mask setting of 12 with 4 L nasal cannula
DM 2
Accu-Cheks with SSI check HgbA1c
- HOLD metformin 500 mg 3 times daily with meals
#GERD
Continue omeprazole
Bipolar disorder
- Check divalproex acid level, continue divalproex acid at 1000 mg daily at 1900, Celexa 10 mg daily, Cogentin 1 mg p.o. twice daily
Tardive dyskinesia-family reports hands and tongue shake
- Continue gabapentin, Cogentin
#Chronic LBBB
#chronic back pain,
#herniated disks
# fibromyalgia
- Continue gabapentin, Flexeril
Gout
Continue allopurinol 100 mg twice daily
#Insomnia
- Continue Seroquel 100 mg daily 1900
Class II obesity
Affects all aspects of care weight loss recommended
DVT prophylaxis
Subcu Lovenox
Full code
--- NOTE | 2025-01-22 22:34 | W.PN.UPDATE ---
Update Note
Progress Note Update
This is an addendum to the H&P written by Charissa Mendoza on 01/22/2025. �Patient seen and examined independently with [employer].
74-year-old female past medical history of COPD on 4 L baseline, left bundle branch block, obstructive sleep apnea, obesity hypoventilation, macrocytic anemia, history of epistaxis, hypertension, hypercholesteremia, diabetes, cognitive impairment,
chronic cytopenia, bipolar disorder, tardive dyskinesia, cognitive impairment, chronic back pain, gout, insomnia, obesity, presenting with soft stools for few weeks with nausea. �Given Imodium today.
Patient also with confusion for the past 1-1/2-month seems to be underlying cognitive impairment.
Vital signs show initial blood pressure 93/41 which improved. Abdomen distended and diffusely tender.�
Labs show creatinine of 1.8 from 1.3 previously. �Patient with chronic anemia with hemoglobin 10.4, chronic thrombocytopenia platelets of 70.
CT abdomen pelvis shows acute uncomplicated sigmoid colitis likely infectious/inflammatory. �Mild to moderate diffuse colonic stool burden likely constipation which seems likely clinically. �Borderline splenomegaly. �Full liquid diet, start MiraLAX,
Zosyn. �IV fluids for AMELIE. �Hold nephrotoxic medications including Lasix.
[2025-01-22] MEDS: NSS 1000 IV (23:51)
[2025-01-23] VITALS (12 sets, daily range): BP systolic 66–126; BP diastolic 37–59; PULSE 64–68; O2SAT 93; BMI 25.6
[2025-01-23] MEDS: ZOSYN 50 IV ×5 (00:42→23:24)
[2025-01-23 06:41] LABS: Hematocrit 30.0 % (37.0-47.0); Hemoglobin 10.0 g/dL (12.0-16.0); Mean Corp Hgb Conc. 33.3 g/dL (33.0-37.0); Mean Corpuscular Volume 102.4 fL (81.0-99.0); Nucleated Red Blood Cells % 0 %; Platelet Count 61 10^3/uL (130-400); Red Cell Dist. Width 14.9 % (11.5-14.5)
[2025-01-23 06:48] LABS: Depakane 79.3 ug/ml (50.0-120.0)
[2025-01-23 06:55] LABS: ALT (SGPT) < 10 U/L (0-35); AST (SGOT) 24 U/L (14-36); Albumin 3.4 g/dl (3.5-5.0); Alkaline Phosphatase 110 U/L (38-126); Blood Urea Nitrogen 18 mg/dl (7-17); Calcium 8.5 mg/dl (8.4-10.2); Carbon Dioxide 29 mmol/L (22-30); Chloride 102 mmol/L (98-107); Estimated Creatinine Clearance 33 ml/min; Glucose 74 mg/dl (70-99); Potassium 5.2 mmol/L (3.5-5.1); Sodium 137 mmol/L (135-145); Total Protein 5.7 g/dl (6.3-8.2); eGFR 34.05
[2025-01-23 09:03] LABS: Glucose - Point of Care 76 mg/dl (70-99)
[2025-01-23] MEDS: NOVOLOG FLEXPEN-LOW RESISTANCE SC ×3 (09:22→17:34)
[2025-01-23 09:24] LABS: Glycohemoglobin (HgbA1c) 5.0 % (4.0-5.6)
[2025-01-23] MEDS: NEURONTIN 300 MG PO ×3 (09:39→20:27)
[2025-01-23] MEDS: COGENTIN 1 MG PO ×2 (09:39→20:16)
[2025-01-23] MEDS: PROTONIX 40 MG PO (09:39)
[2025-01-23] MEDS: LIPITOR 20 MG PO (09:41)
[2025-01-23] MEDS: ZYLOPRIM 100 MG PO ×2 (09:41→20:16)
[2025-01-23] MEDS: COREG 3.125 MG PO ×2 (09:42→20:17)
[2025-01-23] MEDS: VITAMIN D3 (cholecalciferol) 25 MCG PO (09:42)
[2025-01-23] MEDS: FOLVITE 1 MG PO (09:42)
[2025-01-23] MEDS: LIDOCAINE 4% PATCH 3 PATCH TOPICAL (09:45)
[2025-01-23] MEDS: NEUTRA-PHOS POWDER PACKET 1 MG PO ×2 (09:46→20:24)
[2025-01-23] MEDS: MIRALAX 17 GRAMS PO (09:47)
--- NOTE | 2025-01-23 11:52 | CM ---
Patient seen at bedside with patient 2 sons, OT therapist and friend Bonita in ED. Patient lives with 2 sons in a one story home with 5 steps to enter and a ramp. Patient has a walker and a wheelchair, as well as home O2 from [facility] per
son. Patient one son uses a wheelchair and they have had [facility] in the past and would appreciated further supports. Patient somewhat confused when answering CM questions. Per friend Bonita patient has needed increased assistance in the last week and a
half. Patient friend comes frequently and patient sons are always with patient at home. [facility] uses [facility] [address] [facility] and her PCP is Dr. Petersen. Patient states that she has been following with [facility] and they stated that the file
is 'incomplete'. Pending PT/OT recommendations; SNF vs home with VN. CM will call to [facility] to clarify patient status with agency. CM will continue to follow for discharge planning needs.
Plan; home with VN/home O2 vs SNF
[2025-01-23 12:59] LABS: Glucose - Point of Care 86 mg/dl (70-99)
--- NOTE | 2025-01-23 12:59 | W.PN.HOSP.TC ---
Today's Communication/Plan
-
Continue antibiotic
Assessment / Plan
Assessment / Plan
Impression:
74-year-old female past medical history of COPD on 4 L baseline, left bundle branch block, obstructive sleep apnea, obesity hypoventilation, macrocytic anemia, history of epistaxis, hypertension, hypercholesteremia, diabetes, cognitive impairment,
chronic cytopenia, bipolar disorder, tardive dyskinesia, cognitive impairment, chronic back pain, gout, insomnia, obesity, presenting with soft stools for few weeks with nausea. Was given Imodium.
CT abdomen pelvis:
1. Acute uncomplicated sigmoid colitis, likely of infectious/inflammatory etiology.
2. Mild to moderate diffuse colonic stool burden may reflect constipation.
3. Borderline splenomegaly.
Started on Zosyn and admitted under hospitalist.
Assessment/plan:
Acute sigmoid colitis
Patient has soft stools 2-3 times in the a.m. will take Imodium for this
- full liquid diet - will advance
- Follow CBC, BMP
- Consult GI
- Hold Imodium
- PT/OT eval
CT abdomen pelvis oral contrast only:
1. Acute uncomplicated sigmoid colitis, likely of infectious/inflammatory etiology.
2. Mild to moderate diffuse colonic stool burden may reflect constipation.
3. Borderline splenomegaly.
AMELIE
Creatinine slightly
Continue
hold lasix ,mtformin, naprosyn
Cognitive impairment likely early dementia patient family member mother dementia
Progressive decline in memory over the past 1.5 months forgetting things today called her son Kashmir when his name is Carlos has been talking about getting her wedding down on earlier today thought she saw all stool on the sheets per family
- Patient started ginkgo biloba approximately 1 month ago
HTN
-Continue carvedilol 3.125 mg twice daily
Chronic anemia�macrocytic B12 anemia
Hgb 10.4 appears near baseline
- Continue B12 supplement
Chronic thrombocytopenia possibly splenomegaly
Plt 70 baseline 70�107
COPD 4 L nasal cannula dependent
- Continue albuterol inhaler
JHONATAN
Full mask setting of 12 with 4 L nasal cannula
DM 2
Accu-Cheks with SSI check HgbA1c
- HOLD metformin 500 mg 3 times daily with meals
GERD
Continue omeprazole
Bipolar disorder
- Check divalproex acid level, continue divalproex acid at 1000 mg daily at 1900, Celexa 10 mg daily, Cogentin 1 mg p.o. twice daily
Tardive dyskinesia-family reports hands and tongue shake
- Continue gabapentin, Cogentin
#chronic back pain,
#herniated disks
# fibromyalgia
- Continue gabapentin, Flexeril
Gout
Continue allopurinol 100 mg twice daily
#Insomnia
- Continue Seroquel 100 mg daily 1900
Class II obesity
Affects all aspects of care weight loss recommended
CODE STATUS: Full code
DVT prophylaxis: Lovenox
Diet: full diet ---> advance
Total time spent on today's encounter was 65 minutes which included time spent in counseling the patient/family regarding diagnosis and treatment plan as listed above, goals of care, and symptom management. Case was discussed with nursing staff,
specialists, and care coordinators/case management. All labs and imaging personally reviewed by me. Remainder the time spent in detailed review of previous records, lab data, imaging, and other medical provider documentation.
Anticipated Discharge: 24 - 48 hours
Subjective/Interval History
-
Date of Service: January 23, 2025
Patient is confused and cannot provide interval history.
Objective Data
-
Labs:
Laboratory Results
01/23/25
06:10
WBC 4.9
Hgb 10.0 L
Hct 30.0 L
Plt Count 61 L
Sodium 137
Potassium 5.2 H
Chloride 102
Carbon Dioxide 29
BUN 18 H
Creatinine 1.6 H
Glucose 74
Calcium 8.5
Total Bilirubin 0.7
AST 24
ALT < 10
Alkaline Phosphatase 110
Vital Signs:
Vital Signs
Temp Pulse Resp BP Pulse Ox
98.8 F 71 16 120/57 89
01/22/25 14:22 01/23/25 08:15 01/22/25 14:22 01/23/25 08:00 01/23/25 08:15
I&O
01/22/25 01/23/25 01/24/25
06:59 06:59 06:59
Intake Total 480 / 480
Balance 480 / 480
Physical Exam
-
General: Well Developed, Well Nourished and No Apparent Distress
HEENT: Normocephalic, Atraumatic, Moist Mucous Membranes, No Ptosis, PERRLA and Nose Appears Normal
Respiratory: Clear to Auscultation and Non Labored Respirations
Cardiac: Regular Rhythm and S1/S2
Breast: Deferred by me
GI: Soft, Nontender, Nondistended and Normal Bowel Sounds
Genito-urinary: No Costovertebral Tender
Musculoskeletal: No Clubbing, No Cyanosis and No Edema
Skin: Warm
Neuro: Awake
Psych: Confused
Data Reviewed
-
Diagnostic Radiology: Image personally visualized and interpreted and Report Reviewed by me
CT Scan: Image personally visualized and interpreted and Report Reviewed by me
Ultrasound: Image personally visualized and interpreted and Report Reviewed by me
MRI: Image personally visualized and interpreted and Report Reviewed by me
Medical Tests (Nuc Med, Echo etc): Image personally visualized and interpreted and Report Reviewed by me
Labs: Labs Reviewed by me
Old Records: Reviewed
--- NOTE | 2025-01-23 13:20 | PN.CDI ---
CDI
- -
CDI:
Physician Documentation Request
Admit Date: 01/22/25 22:26
Dear Doctor Amelia,
Clinical Indicators:
Patient admitted with acute sigmoid colitis.
01/23 PN, 'COPD 4 L nasal cannula dependent...JHONATAN Full mask setting of 12 with 4 L nasal cannula'
Please clarify which of the following accurately represents the patient's respiratory status:
Chronic hypoxic/hypercapnic respiratory failure
Chronic hypoxic respiratory failure
Hypoxia only
Other, please specify
Use of terms such as suspected, likely, concern for, or probable (associated with a specific diagnosis that is being evaluated, monitored, or treated as if it exists) are acceptable and can be coded in the inpatient setting, when documented at the
time of discharge.
Thank you,
LEWIS Jones RN
CDI Specialist
available via tiger text
Please use your independent medical judgment in providing your response.
[2025-01-23] MEDS: VENTOLIN NEBULES INH (16:05)
[2025-01-23] MEDS: TYLENOL 650 MG PO (16:12)
[2025-01-23 16:38] LABS: Urine Character Clear (Clear)
[2025-01-23 16:44] LABS: Urine Squamous Cell 16-20 /LPF (Few)
[2025-01-23 16:45] LABS: Urine Red Blood Cell 0-2 /HPF (0-2); Urine White Cell 50-60 /HPF (0-5)
[2025-01-23] MEDS: FLEXERIL 5 MG PO (17:33)
[2025-01-23] MEDS: SEROQUEL 100 MG PO (17:33)
[2025-01-23] MEDS: DEPAKOTE ER (24 HR RELEASE) 1000 MG PO (17:33)
[2025-01-23 17:34] LABS: Glucose - Point of Care 72 mg/dl (70-99)
[2025-01-23] MEDS: VENTOLIN NEBULES 2.5 MG INH (18:55)
[2025-01-23] MEDS: CELEXA 10 MG PO (20:29)
[2025-01-23 22:15] LABS: Glucose - Point of Care 88 mg/dl (70-99)
[2025-01-24] MEDS: ZOSYN 50 IV ×4 (05:24→23:07)
[2025-01-24 06:00] VITALS: BMI 25.9
[2025-01-24 06:58] VITALS: BP 111/76
[2025-01-24] MEDS: VENTOLIN NEBULES 2.5 MG INH ×3 (07:31→20:44)
[2025-01-24] MEDS: LIDOCAINE 4% PATCH 3 PATCH TOPICAL (08:07)
[2025-01-24] MEDS: COGENTIN 1 MG PO ×2 (08:08→19:56)
[2025-01-24] MEDS: MIRALAX 17 GRAMS PO (08:08)
[2025-01-24] MEDS: PROTONIX 40 MG PO (08:08)
[2025-01-24] MEDS: NEURONTIN 300 MG PO ×3 (08:08→19:56)
[2025-01-24] MEDS: ZYLOPRIM 100 MG PO ×2 (08:08→19:55)
[2025-01-24] MEDS: NEUTRA-PHOS POWDER PACKET 1 MG PO ×2 (08:09→19:55)
[2025-01-24] MEDS: COREG 3.125 MG PO ×2 (08:10→19:55)
[2025-01-24] MEDS: LIPITOR 20 MG PO (08:11)
[2025-01-24] MEDS: VITAMIN D3 (cholecalciferol) 25 MCG PO (08:11)
[2025-01-24] MEDS: FOLVITE 1 MG PO (08:11)
[2025-01-24 08:27] LABS: Glucose - Point of Care 75 mg/dl (70-99)
[2025-01-24] MEDS: NOVOLOG FLEXPEN-LOW RESISTANCE SC ×3 (09:30→17:31)
[2025-01-24 09:50] LABS: Hematocrit 28.5 % (37.0-47.0); Hemoglobin 9.7 g/dL (12.0-16.0); Mean Corp Hgb Conc. 34.0 g/dL (33.0-37.0); Mean Corpuscular Volume 102.9 fL (81.0-99.0); Nucleated Red Blood Cells % 0 %; Platelet Count 54 10^3/uL (130-400); Red Cell Dist. Width 14.7 % (11.5-14.5)
[2025-01-24 10:12] LABS: ALT (SGPT) < 10 U/L (0-35); AST (SGOT) 22 U/L (14-36); Albumin 3.2 g/dl (3.5-5.0); Alkaline Phosphatase 101 U/L (38-126); Blood Urea Nitrogen 18 mg/dl (7-17); Calcium 9.1 mg/dl (8.4-10.2); Carbon Dioxide 32 mmol/L (22-30); Chloride 101 mmol/L (98-107); Estimated Creatinine Clearance 28 ml/min; Glucose 77 mg/dl (70-99); Potassium 4.5 mmol/L (3.5-5.1); Sodium 136 mmol/L (135-145); Total Protein 5.4 g/dl (6.3-8.2); eGFR 27.71
[2025-01-24 12:41] LABS: Glucose - Point of Care 114 mg/dl (70-99)
--- NOTE | 2025-01-24 12:46 | W.PN.HOSP.TC ---
Today's Communication/Plan
-
Continue to biotic.
Advance diet.
Resume IVF
Assessment / Plan
Assessment / Plan
Impression:
74-year-old female past medical history of COPD on 4 L baseline, left bundle branch block, obstructive sleep apnea, obesity hypoventilation, macrocytic anemia, history of epistaxis, hypertension, hypercholesteremia, diabetes, cognitive impairment,
chronic cytopenia, bipolar disorder, tardive dyskinesia, cognitive impairment, chronic back pain, gout, insomnia, obesity, presenting with soft stools for few weeks with nausea. Was given Imodium.
CT abdomen pelvis:
1. Acute uncomplicated sigmoid colitis, likely of infectious/inflammatory etiology.
2. Mild to moderate diffuse colonic stool burden may reflect constipation.
3. Borderline splenomegaly.
Started on Zosyn and admitted under hospitalist.
Assessment/plan:
Acute sigmoid colitis
Patient has soft stools 2-3 times in the a.m. will take Imodium for this
- full liquid diet - will advance
- Follow CBC, BMP
- Consult GI
- Hold Imodium
- PT/OT eval
CT abdomen pelvis oral contrast only:
1. Acute uncomplicated sigmoid colitis, likely of infectious/inflammatory etiology.
2. Mild to moderate diffuse colonic stool burden may reflect constipation.
3. Borderline splenomegaly.
01/24
Advance diet to low residue
AMELIE
Continue IVF
hold lasix ,mtformin, naprosyn
Chronic hypoxic/hypercapnic respiratory failure
COPD 4 L nasal cannula dependent.
JHONATAN Full mask setting of 12 with 4 L nasal cannula.
Cognitive impairment likely early dementia patient family member mother dementia
Progressive decline in memory over the past 1.5 months forgetting things today called her son Kashmir when his name is Carlos has been talking about getting her wedding down on earlier today thought she saw all stool on the sheets per family
- Patient started ginkgo biloba approximately 1 month ago
HTN
-Continue carvedilol 3.125 mg twice daily
Chronic anemia�macrocytic B12 anemia
Hgb 10.4 appears near baseline
- Continue B12 supplement
Chronic thrombocytopenia possibly splenomegaly
Plt 70 baseline 70�107
COPD 4 L nasal cannula dependent
- Continue albuterol inhaler
JHONATAN
Full mask setting of 12 with 4 L nasal cannula
DM 2
Accu-Cheks with SSI check HgbA1c
- HOLD metformin 500 mg 3 times daily with meals
GERD
Continue omeprazole
Bipolar disorder
- Check divalproex acid level, continue divalproex acid at 1000 mg daily at 1900, Celexa 10 mg daily, Cogentin 1 mg p.o. twice daily
Tardive dyskinesia-family reports hands and tongue shake
- Continue gabapentin, Cogentin
#chronic back pain,
#herniated disks
# fibromyalgia
- Continue gabapentin, Flexeril
Gout
Continue allopurinol 100 mg twice daily
#Insomnia
- Continue Seroquel 100 mg daily 1900
Class II obesity
Affects all aspects of care weight loss recommended
CODE STATUS: Full code
DVT prophylaxis: Lovenox
Diet: full diet ---> advance to LRD
Total time spent on today's encounter was 65 minutes which included time spent in counseling the patient/family regarding diagnosis and treatment plan as listed above, goals of care, and symptom management. Case was discussed with nursing staff,
specialists, and care coordinators/case management. All labs and imaging personally reviewed by me. Remainder the time spent in detailed review of previous records, lab data, imaging, and other medical provider documentation.
Anticipated Discharge: 24 - 48 hours
Subjective/Interval History
-
Date of Service: January 24, 2025
She is more awake and oriented.
Denies chest pain or shortness of breath.
Objective Data
-
Labs:
Laboratory Results
01/24/25
09:09
WBC 3.9 L
Hgb 9.7 L
Hct 28.5 L
Plt Count 54 L
Sodium 136
Potassium 4.5
Chloride 101
Carbon Dioxide 32 H
BUN 18 H
Creatinine 1.9 H
Glucose 77
Calcium 9.1
Total Bilirubin 0.7
AST 22
ALT < 10
Alkaline Phosphatase 101
Vital Signs:
Vital Signs
Temp Pulse Resp BP Pulse Ox
97.9 F 18 68 111/76 97
01/24/25 06:58 01/24/25 07:34 01/24/25 07:34 01/24/25 06:58 01/24/25 07:34
I&O
01/23/25 01/24/25 01/25/25
06:59 06:59 06:59
Intake Total 480 / 480 1240 / 1240
Balance 480 / 480 1240 / 1240
Physical Exam
-
General: Well Developed, Well Nourished and No Apparent Distress
HEENT: Normocephalic, Atraumatic, Moist Mucous Membranes, No Ptosis, PERRLA and Nose Appears Normal
Respiratory: Clear to Auscultation and Non Labored Respirations
Cardiac: Regular Rhythm and S1/S2
Breast: Deferred by me
GI: Soft, Nontender, Nondistended and Normal Bowel Sounds
Genito-urinary: No Costovertebral Tender
Musculoskeletal: No Clubbing, No Cyanosis and No Edema
Skin: Warm
Neuro: Awake
Psych: Calm
Data Reviewed
-
Diagnostic Radiology: Image personally visualized and interpreted and Report Reviewed by me
CT Scan: Image personally visualized and interpreted and Report Reviewed by me
Ultrasound: Image personally visualized and interpreted and Report Reviewed by me
MRI: Image personally visualized and interpreted and Report Reviewed by me
Medical Tests (Nuc Med, Echo etc): Image personally visualized and interpreted and Report Reviewed by me
Labs: Labs Reviewed by me
Old Records: Reviewed
[2025-01-24] MEDS: NSS 1000 IV (13:13)
[2025-01-24 15:41] VITALS: BP 124/50
--- NOTE | 2025-01-24 16:15 | CHAP ---
Received a voicemail from Jeaneth's son, Johnnie, requesting child welfare manager support for his mother. Jeaneth was somewhat disoriented during the visit, but in good spirits. Her two sons arrived; we prayed together. Emotional and spiritual support provided,
along with assurance of our on-going availability.
[2025-01-24 16:32] LABS: Glucose - Point of Care 122 mg/dl (70-99)
[2025-01-24] MEDS: SEROQUEL 100 MG PO (18:21)
[2025-01-24] MEDS: FLEXERIL 5 MG PO (18:21)
[2025-01-24] MEDS: CELEXA 10 MG PO (18:21)
[2025-01-24] MEDS: DEPAKOTE ER (24 HR RELEASE) 1000 MG PO (18:21)
[2025-01-24 21:31] LABS: Glucose - Point of Care 120 mg/dl (70-99)
[2025-01-24 22:32] VITALS: PULSE 69
[2025-01-24 23:38] VITALS: BP 125/46
[2025-01-25] MEDS: NSS 1000 IV ×2 (02:03→15:16)
[2025-01-25] MEDS: ZOSYN 50 IV ×4 (05:17→23:49)
[2025-01-25 06:00] VITALS: BMI 26.0
[2025-01-25 07:24] LABS: ALT (SGPT) < 10 U/L (0-35); AST (SGOT) 21 U/L (14-36); Albumin 3.1 g/dl (3.5-5.0); Alkaline Phosphatase 97 U/L (38-126); Blood Urea Nitrogen 14 mg/dl (7-17); Calcium 8.6 mg/dl (8.4-10.2); Carbon Dioxide 29 mmol/L (22-30); Chloride 108 mmol/L (98-107); Estimated Creatinine Clearance 31 ml/min; Glucose 75 mg/dl (70-99); Potassium 4.2 mmol/L (3.5-5.1); Sodium 143 mmol/L (135-145); Total Protein 5.2 g/dl (6.3-8.2); eGFR 31.66
[2025-01-25 07:31] VITALS: BP 147/65
[2025-01-25] MEDS: VENTOLIN NEBULES 2.5 MG INH ×3 (07:41→19:53)
[2025-01-25 07:43] LABS: Hematocrit 26.8 % (37.0-47.0); Hemoglobin 9.1 g/dL (12.0-16.0); Mean Corp Hgb Conc. 34.0 g/dL (33.0-37.0); Mean Corpuscular Volume 103.1 fL (81.0-99.0); Nucleated Red Blood Cells % 0 %; Platelet Count 59 10^3/uL (130-400); Red Cell Dist. Width 14.9 % (11.5-14.5)
[2025-01-25 07:57] LABS: Glucose - Point of Care 54 mg/dl (70-99)
[2025-01-25 08:20] LABS: Glucose - Point of Care 58 mg/dl (70-99)
[2025-01-25] MEDS: NOVOLOG FLEXPEN-LOW RESISTANCE SC ×3 (08:24→17:31)
[2025-01-25] MEDS: COGENTIN 1 MG PO ×2 (08:25→20:06)
[2025-01-25] MEDS: FOLVITE 1 MG PO (08:25)
[2025-01-25] MEDS: NEURONTIN 300 MG PO ×3 (08:25→20:07)
[2025-01-25] MEDS: ZYLOPRIM 100 MG PO ×2 (08:25→20:06)
[2025-01-25] MEDS: LIPITOR 20 MG PO (08:25)
[2025-01-25] MEDS: VITAMIN D3 (cholecalciferol) 25 MCG PO (08:25)
[2025-01-25] MEDS: NEUTRA-PHOS POWDER PACKET 1 MG PO ×2 (08:25→20:06)
[2025-01-25] MEDS: MIRALAX 17 GRAMS PO (08:25)
[2025-01-25] MEDS: PROTONIX 40 MG PO (08:26)
[2025-01-25] MEDS: COREG 3.125 MG PO ×2 (08:26→20:06)
[2025-01-25] MEDS: LIDOCAINE 4% PATCH 3 PATCH TOPICAL (08:26)
[2025-01-25 09:03] LABS: Glucose - Point of Care 138 mg/dl (70-99)
[2025-01-25 12:11] LABS: Glucose - Point of Care 110 mg/dl (70-99)
--- NOTE | 2025-01-25 12:34 | W.PN.HOSP.TC ---
Today's Communication/Plan
-
Continue Zosyn.
Will be discharged on Augmentin.
Physical therapy recommending rehab but patient is not interested.
Assessment / Plan
Assessment / Plan
Impression:
74-year-old female past medical history of COPD on 4 L baseline, left bundle branch block, obstructive sleep apnea, obesity hypoventilation, macrocytic anemia, history of epistaxis, hypertension, hypercholesteremia, diabetes, cognitive impairment,
chronic cytopenia, bipolar disorder, tardive dyskinesia, cognitive impairment, chronic back pain, gout, insomnia, obesity, presenting with soft stools for few weeks with nausea. Was given Imodium.
CT abdomen pelvis:
1. Acute uncomplicated sigmoid colitis, likely of infectious/inflammatory etiology.
2. Mild to moderate diffuse colonic stool burden may reflect constipation.
3. Borderline splenomegaly.
Started on Zosyn and admitted under hospitalist.
Diarrhea improved, patient seen by physical therapy recommended rehab but patient wants to go home with home physical therapy.
Social service consulted.
Will be discharged on Augmentin.
Assessment/plan:
Acute sigmoid colitis
Patient has soft stools 2-3 times in the a.m. will take Imodium for this
- full liquid diet - will advance
- Follow CBC, BMP
- Consult GI
- Hold Imodium
- PT/OT eval
CT abdomen pelvis oral contrast only:
1. Acute uncomplicated sigmoid colitis, likely of infectious/inflammatory etiology.
2. Mild to moderate diffuse colonic stool burden may reflect constipation.
3. Borderline splenomegaly.
01/24
Advance diet to low residue
01/25
Improved diarrhea.
Possible discharge on Augmentin
AMELIE
Continue IVF
hold lasix ,mtformin, naprosyn
01/25
Creatinine 1.7
Resume Lasix on discharge but hold metformin and Naprosyn
Chronic hypoxic/hypercapnic respiratory failure
COPD 4 L nasal cannula dependent.
JHONATAN Full mask setting of 12 with 4 L nasal cannula.
Cognitive impairment likely early dementia patient family member mother dementia
Progressive decline in memory over the past 1.5 months forgetting things today called her son Kashmir when his name is Carlos has been talking about getting her wedding down on earlier today thought she saw all stool on the sheets per family
- Patient started ginkgo biloba approximately 1 month ago
HTN
-Continue carvedilol 3.125 mg twice daily
Chronic anemia�macrocytic B12 anemia
Hgb 10.4 appears near baseline
- Continue B12 supplement
Chronic thrombocytopenia possibly splenomegaly
Plt 70 baseline 70�107
COPD 4 L nasal cannula dependent
Chronic hypoxic and hypercapnic respiratory failure
- Continue albuterol inhaler
JHONATAN
Full mask setting of 12 with 4 L nasal cannula
DM 2
Accu-Cheks with SSI check HgbA1c
- HOLD metformin 500 mg 3 times daily with meals
GERD
Continue omeprazole
Bipolar disorder
- Check divalproex acid level, continue divalproex acid at 1000 mg daily at 1900, Celexa 10 mg daily, Cogentin 1 mg p.o. twice daily
Tardive dyskinesia-family reports hands and tongue shake
- Continue gabapentin, Cogentin
#chronic back pain,
#herniated disks
# fibromyalgia
- Continue gabapentin, Flexeril
Gout
Continue allopurinol 100 mg twice daily
#Insomnia
- Continue Seroquel 100 mg daily 1900
Class II obesity
Affects all aspects of care weight loss recommended
CODE STATUS: Full code
DVT prophylaxis: SCDs
Diet: regular
Family communication: Discussed with family at bedside.
Disposition: Discharge to rehab once bed available. (Patient may not be interested to go to SNF)
Total time spent on today's encounter was 65 minutes which included time spent in counseling the patient/family regarding diagnosis and treatment plan as listed above, goals of care, and symptom management. Case was discussed with nursing staff,
specialists, and care coordinators/case management. All labs and imaging personally reviewed by me. Remainder the time spent in detailed review of previous records, lab data, imaging, and other medical provider documentation.
Anticipated Discharge: Within 24 hours
Subjective/Interval History
-
Date of Service: January 25, 2025
Patient seen and examined at bedside, denies any chest pain or shortness of breath, no abdominal pain, no nausea, no vomiting, improved diarrhea.
Objective Data
-
Labs:
Laboratory Results
01/25/25
06:38
WBC 3.2 L
Hgb 9.1 L
Hct 26.8 L
Plt Count 59 L
Sodium 143
Potassium 4.2
Chloride 108 H
Carbon Dioxide 29
BUN 14
Creatinine 1.7 H
Glucose 75
Calcium 8.6
Total Bilirubin 0.5
AST 21
ALT < 10
Alkaline Phosphatase 97
Vital Signs:
Vital Signs
Temp Pulse Resp BP Pulse Ox
97.3 F 63 18 147/65 97
01/25/25 07:31 01/25/25 07:44 01/25/25 07:44 01/25/25 07:31 01/25/25 07:44
I&O
01/24/25 01/25/25 01/26/25
06:59 06:59 06:59
Intake Total 1340 / 1340 1760 / 1760
Balance 1340 / 1340 1760 / 1760
Physical Exam
-
General: Well Developed, Well Nourished and No Apparent Distress
HEENT: Normocephalic, Atraumatic, Moist Mucous Membranes, No Ptosis, PERRLA and Nose Appears Normal
Respiratory: Clear to Auscultation and Non Labored Respirations
Cardiac: Regular Rhythm and S1/S2
Breast: Deferred by me
GI: Soft, Nontender, Nondistended and Normal Bowel Sounds
Genito-urinary: No Costovertebral Tender
Musculoskeletal: No Clubbing, No Cyanosis and No Edema
Skin: Warm
Neuro: Awake
Psych: Calm
Data Reviewed
-
Diagnostic Radiology: Image personally visualized and interpreted and Report Reviewed by me
CT Scan: Image personally visualized and interpreted and Report Reviewed by me
Ultrasound: Image personally visualized and interpreted and Report Reviewed by me
MRI: Image personally visualized and interpreted and Report Reviewed by me
Medical Tests (Nuc Med, Echo etc): Image personally visualized and interpreted and Report Reviewed by me
Labs: Labs Reviewed by me
Old Records: Reviewed
--- NOTE | 2025-01-25 14:39 | CM ---
CM reviewed pt with attending- medically ready for dc
Bedside meeting with pt and son/Carlos
SNF recs by therapy- they are in agreement
PAC list provided and referrals sent via [facility]
Pt will require [employer] auth
Discharge Disposition- SNF pending auth
[2025-01-25 15:36] VITALS: BP 129/48
[2025-01-25 17:02] LABS: Glucose - Point of Care 118 mg/dl (70-99)
[2025-01-25] MEDS: SEROQUEL 100 MG PO (18:03)
[2025-01-25] MEDS: CELEXA 10 MG PO (18:03)
[2025-01-25] MEDS: FLEXERIL 5 MG PO (18:03)
[2025-01-25] MEDS: DEPAKOTE ER (24 HR RELEASE) 1000 MG PO (18:03)
[2025-01-25 21:09] LABS: Glucose - Point of Care 111 mg/dl (70-99)
[2025-01-25 23:10] VITALS: BP 134/65
[2025-01-26] MEDS: ZOSYN 50 IV ×4 (05:04→23:27)
[2025-01-26 06:00] VITALS: BMI 26.2
[2025-01-26 07:40] LABS: Glucose - Point of Care 67 mg/dl (70-99)
[2025-01-26 07:56] VITALS: BP 135/66
[2025-01-26] MEDS: NOVOLOG FLEXPEN-LOW RESISTANCE SC ×2 (08:02→12:35)
[2025-01-26 08:13] LABS: Glucose - Point of Care 91 mg/dl (70-99)
[2025-01-26] MEDS: VENTOLIN NEBULES 2.5 MG INH (08:43)
[2025-01-26 09:36] LABS: Hematocrit 30.5 % (37.0-47.0); Hemoglobin 10.0 g/dL (12.0-16.0); Mean Corp Hgb Conc. 32.8 g/dL (33.0-37.0); Mean Corpuscular Volume 105.5 fL (81.0-99.0); Platelet Count 64 10^3/uL (130-400); Red Cell Dist. Width 15.5 % (11.5-14.5)
[2025-01-26] MEDS: VITAMIN D3 (cholecalciferol) 25 MCG PO (09:44)
[2025-01-26] MEDS: ZYLOPRIM 100 MG PO ×2 (09:44→20:30)
[2025-01-26] MEDS: LIDOCAINE 4% PATCH 3 PATCH TOPICAL (09:44)
[2025-01-26] MEDS: COREG 3.125 MG PO ×2 (09:44→20:29)
[2025-01-26] MEDS: PROTONIX 40 MG PO (09:44)
[2025-01-26] MEDS: NEURONTIN 300 MG PO ×3 (09:44→20:29)
[2025-01-26] MEDS: LIPITOR 20 MG PO (09:44)
[2025-01-26] MEDS: COGENTIN 1 MG PO ×2 (09:44→20:30)
[2025-01-26] MEDS: FOLVITE 1 MG PO (09:44)
[2025-01-26] MEDS: MIRALAX 17 GRAMS PO (09:45)
[2025-01-26] MEDS: NEUTRA-PHOS POWDER PACKET 250 MG PO ×2 (09:54→20:30)
[2025-01-26] MEDS: NEUTRA-PHOS POWDER PACKET PO (09:55)
[2025-01-26 10:04] LABS: Blood Urea Nitrogen 8 mg/dl (7-17); Calcium 8.7 mg/dl (8.4-10.2); Carbon Dioxide 26 mmol/L (22-30); Chloride 111 mmol/L (98-107); Estimated Creatinine Clearance 38 ml/min; Glucose 112 mg/dl (70-99); Potassium 4.0 mmol/L (3.5-5.1); Sodium 144 mmol/L (135-145); eGFR 39.97
[2025-01-26 10:33] LABS: Glucose - Point of Care 112 mg/dl (70-99)
--- NOTE | 2025-01-26 10:33 | CM ---
Chart reviewed. Patient being rec for skilled rehab, referrals sent yesterday
Spoke w/ patient's son, Carlos, to review referrals. Carlos shared that he called patient's insurance to verify in network facilities. [facility] was provided that is in network. At
this time, no determination back yet from [facility]
Reached out to [facility] admissions regarding referral and bed availability
CM made son aware that depending on bed availability, will need to expand to other facilities that is in network w/ patient's insurance
Will need insurance auth
Plan: SNF
[2025-01-26 12:22] LABS: Glucose - Point of Care 90 mg/dl (70-99)
--- NOTE | 2025-01-26 13:53 | W.PN.HOSP.TC ---
Today's Communication/Plan
-
Medically stable for dc to SNF. CM Aware.
Assessment / Plan
Assessment / Plan
Assessment:
Acute sigmoid colitis
- CT: Acute uncomplicated sigmoid colitis, likely of infectious/inflammatory etiology
- continue Zosyn, finish 7-10 course
- tolerating LRD
AMELIE
- resume Lasix at dc
- Metformin/NSAIDs stopped
Chronic hypoxic/hypercapnic respiratory failure
COPD 4 L nasal cannula dependent.
JHONATAN Full mask setting of 12 with 4 L nasal cannula.
- continue prn inhaler/neb
Cognitive impairment likely early dementia patient family member mother dementia
Progressive decline in memory over the past 1.5 months forgetting things today called her son Kashmir when his name is Carlos has been talking about getting her wedding down on earlier today thought she saw all stool on the sheets per family
- Patient started ginkgo biloba approximately 1 month ago
Essential HTN
- continue carvedilol 3.125 mg twice daily
Chronic anemia�macrocytic B12 anemia
Hgb 10.4 appears near baseline
- Continue B12 supplement
Chronic thrombocytopenia possibly splenomegaly
- Plt 70 baseline 70�107
Type 2 DM
- holding Metformin
- A1c: 5.0
GERD - PPI
Bipolar disorder
- divalproex acid level within ranger, continue divalproex acid at 1000 mg daily at 1900, Celexa 10 mg daily, Cogentin 1 mg p.o. twice daily
Tardive dyskinesia-family reports hands and tongue shake
- Continue gabapentin, Cogentin
chronic back pain,
herniated disks
fibromyalgia
- Continue gabapentin, Flexeril
Gout
- continue allopurinol 100 mg twice daily
Insomnia
- continue Seroquel 100 mg daily 1900
Class II obesity
- Affects all aspects of care weight loss recommended
DVT ppx: SCDs
Code: Full
Anticipated Discharge: 24 - 48 hours
Subjective/Interval History
-
Date of Service: January 26, 2025
resting comfortably, no complaints
Objective Data
-
Labs:
Laboratory Results
01/26/25
08:58
WBC 3.7 L
Hgb 10.0 L
Hct 30.5 L
Plt Count 64 L
Sodium 144
Potassium 4.0
Chloride 111 H
Carbon Dioxide 26
BUN 8
Creatinine 1.4 H
Glucose 112 H
Calcium 8.7
Vital Signs:
Vital Signs
Temp Pulse Resp BP Pulse Ox
98.8 F 80 18 135/66 97
01/26/25 07:56 01/26/25 08:44 01/26/25 08:44 01/26/25 07:56 01/26/25 08:44
I&O
01/25/25 01/26/25 01/27/25
06:59 06:59 06:59
Intake Total 1760 / 1760 1620 / 1620
Output Total 1150 / 1150
Balance 1760 / 1760 470 / 470
Physical Exam
-
General: No Apparent Distress
HEENT: Normocephalic and Atraumatic
Respiratory: Negative Wheezes
Cardiac: Regular Rhythm and S1/S2
GI: Soft
Musculoskeletal: No Edema
Neuro: AO x 3
Psych: Calm
Data Reviewed
-
Total Time Spent with Patient (in minutes): 42
Labs: Labs Reviewed by me
[2025-01-26 15:10] VITALS: BP 138/61
[2025-01-26 15:57] VITALS: BP 136/67; PULSE 88; O2SAT 96
--- NOTE | 2025-01-26 16:55 | CM ---
TC from patients son asking if his mother would be transferred today.
CM reviewed notes and referrals, accepted at 2 facilities.
Auth will be initated tomorrow after family decides on facility as insurance co is currently closed.
CM to contact son in am.
Plan: skilled rehab once auth obtained.
[2025-01-26 17:03] LABS: Glucose - Point of Care 160 mg/dl (70-99)
[2025-01-26] MEDS: ANESTHETIC LOZENGE 1 LOZENGE PO (17:04)
[2025-01-26] MEDS: NOVOLOG FLEXPEN-LOW RESISTANCE 1 UNITS SC (17:43)
[2025-01-26] MEDS: FLEXERIL 5 MG PO (18:10)
[2025-01-26] MEDS: CELEXA 10 MG PO (18:10)
[2025-01-26] MEDS: SEROQUEL 100 MG PO (18:11)
[2025-01-26] MEDS: DEPAKOTE ER (24 HR RELEASE) 1000 MG PO (18:11)
[2025-01-26 21:12] LABS: Glucose - Point of Care 90 mg/dl (70-99)
[2025-01-26 22:26] VITALS: PULSE 74
[2025-01-26 23:27] VITALS: BP 122/57
[2025-01-27 03:42] LABS: Glucose - Point of Care 91 mg/dl (70-99)
[2025-01-27 04:36] VITALS: PULSE 75
[2025-01-27] MEDS: ZOSYN 50 IV ×4 (05:32→23:07)
[2025-01-27 05:34] VITALS: BMI 26.2
[2025-01-27 07:01] VITALS: BP 166/64
[2025-01-27 08:11] LABS: Blood Urea Nitrogen 9 mg/dl (7-17); Calcium 8.8 mg/dl (8.4-10.2); Carbon Dioxide 26 mmol/L (22-30); Chloride 113 mmol/L (98-107); Estimated Creatinine Clearance 38 ml/min; Glucose 78 mg/dl (70-99); Potassium 4.0 mmol/L (3.5-5.1); Sodium 142 mmol/L (135-145); eGFR 39.97
[2025-01-27 08:19] LABS: Glucose - Point of Care 78 mg/dl (70-99)
[2025-01-27] MEDS: COREG 3.125 MG PO ×2 (08:53→20:07)
[2025-01-27] MEDS: NOVOLOG FLEXPEN-LOW RESISTANCE SC ×3 (08:53→17:43)
[2025-01-27] MEDS: ZYLOPRIM 100 MG PO ×2 (08:53→20:08)
[2025-01-27] MEDS: FOLVITE 1 MG PO (08:54)
[2025-01-27] MEDS: NEUTRA-PHOS POWDER PACKET 250 MG PO ×2 (08:54→20:07)
[2025-01-27] MEDS: PROTONIX 40 MG PO (08:54)
[2025-01-27] MEDS: COGENTIN 1 MG PO ×2 (08:54→20:07)
[2025-01-27] MEDS: NEURONTIN 300 MG PO ×3 (08:54→21:53)
[2025-01-27] MEDS: LIPITOR 20 MG PO (08:54)
[2025-01-27] MEDS: LIDOCAINE 4% PATCH 3 PATCH TOPICAL (08:55)
[2025-01-27] MEDS: MIRALAX 17 GRAMS PO (08:55)
[2025-01-27 09:01] LABS: Hematocrit 26.9 % (37.0-47.0); Hemoglobin 8.9 g/dL (12.0-16.0); Mean Corp Hgb Conc. 33.1 g/dL (33.0-37.0); Mean Corpuscular Volume 104.7 fL (81.0-99.0); Platelet Count 65 10^3/uL (130-400); Red Cell Dist. Width 15.8 % (11.5-14.5)
[2025-01-27] MEDS: VITAMIN D3 (cholecalciferol) PO (09:02)
--- NOTE | 2025-01-27 10:45 | CM ---
Addendum entered by KEN Mosher 01/27/25 12:08:
Placed a call to patient's insurance and was advised by a associate financial representative named, John Bella that [facility] reviews all clinical for post acute care and SNF stays. # [phone]
Spoke with a associate financial representative named, (J.W) who stated to fax all clinical to fax number above and they will review.
Pending auth# [id number]
Clinical faxed.
Attending updated. Attending stated that patient may be medically cleared tomorrow.
Will await determination and update son.
Original Note:
Received message from dept that patient's son had called in to receive an update regarding facilities. Placed a call to Theresa in admissions at both [facility] and [facility] who stated that she spoke with admissions at [facility] and they do have bed
availability for patient. NPI # [id number] Attending Dr. Titus [id number].
Explanation was provided to patient, that patient's insurance will have to approve the SNF stay and that auth must be obtained prior to transfer. He expressed understanding. He understands that this process may take a bit as insurance has to review
the clinical information.
Plan: Case management will continue to follow and assist with discharge planning. Transfer to SNF upon obtaining auth and when patient medically stable.
--- NOTE | 2025-01-27 11:03 | W.PN.HOSP.TC ---
Today's Communication/Plan
-
Dulcolax x 1
Gas X
continue Abx
DC planning to SNF
Assessment / Plan
Assessment / Plan
Assessment:
Acute sigmoid colitis
- CT: Acute uncomplicated sigmoid colitis, likely of infectious/inflammatory etiology
- continue Zosyn, day 5/7. Augmentin at discharge
- tolerating LRD
AMELIE
- resume Lasix at dc
- Metformin/NSAIDs stopped
Chronic hypoxic/hypercapnic respiratory failure
COPD 4 L nasal cannula dependent.
JHONATAN Full mask setting of 12 with 4 L nasal cannula.
- continue prn inhaler/neb
Cognitive impairment likely early dementia patient family member mother dementia
Progressive decline in memory over the past 1.5 months forgetting things today called her son Kashmir when his name is Carlos has been talking about getting her wedding down on earlier today thought she saw all stool on the sheets per family
- Patient started ginkgo biloba approximately 1 month ago
Essential HTN
- continue carvedilol 3.125 mg twice daily
Chronic anemia�macrocytic B12 anemia
Hgb 10.4 appears near baseline
- Continue B12 supplement
Chronic thrombocytopenia possibly splenomegaly
- Plt 70 baseline 70�107
Type 2 DM
- holding Metformin
- A1c: 5.0
GERD - PPI
Bipolar disorder
- divalproex acid level within ranger, continue divalproex acid at 1000 mg daily at 1900, Celexa 10 mg daily, Cogentin 1 mg p.o. twice daily
Tardive dyskinesia-family reports hands and tongue shake
- Continue gabapentin, Cogentin
chronic back pain,
herniated disks
fibromyalgia
- Continue gabapentin, Flexeril
Gout
- continue allopurinol 100 mg twice daily
Insomnia
- continue Seroquel 100 mg daily 1900
Class II obesity
- Affects all aspects of care weight loss recommended
DVT ppx: SCDs
Code: Full
Anticipated Discharge: Within 24 hours
Subjective/Interval History
-
Date of Service: January 27, 2025
resting comfortably,
feels gas distention
self-reports 3 BMs yesterday
Objective Data
-
Labs:
Laboratory Results
01/27/25 01/27/25
07:25 08:33
WBC Cancelled 3.2 L
Hgb Cancelled 8.9 L
Hct Cancelled 26.9 L
Plt Count Cancelled 65 L
Sodium 142
Potassium 4.0
Chloride 113 H
Carbon Dioxide 26
BUN 9
Creatinine 1.4 H
Glucose 78
Calcium 8.8
Vital Signs:
Vital Signs
Temp Pulse Resp BP Pulse Ox
97.9 F 67 18 166/67 100
01/27/25 07:01 01/27/25 07:01 01/27/25 07:01 01/27/25 08:53 01/27/25 09:00
I&O
01/26/25 01/27/25 01/28/25
06:59 06:59 06:59
Intake Total 1620 / 1620 1140 / 1140
Output Total 1150 / 1150
Balance 470 / 470 1140 / 1140
Physical Exam
-
General: No Apparent Distress
HEENT: Normocephalic and Atraumatic
Respiratory: Negative Wheezes
Cardiac: Regular Rhythm and S1/S2
GI: Soft
Musculoskeletal: No Edema
Neuro: AO x 3
Psych: Calm
Data Reviewed
-
Total Time Spent with Patient (in minutes): 41
Labs: Labs Reviewed by me
[2025-01-27] MEDS: DULCOLAX 10 MG RECTAL (11:24)
[2025-01-27 11:40] LABS: Glucose - Point of Care 92 mg/dl (70-99)
[2025-01-27 15:02] VITALS: BP 137/52
[2025-01-27 16:17] LABS: Glucose - Point of Care 72 mg/dl (70-99)
[2025-01-27] MEDS: SEROQUEL 100 MG PO (18:18)
[2025-01-27] MEDS: DEPAKOTE ER (24 HR RELEASE) 1000 MG PO (18:18)
[2025-01-27] MEDS: CELEXA 10 MG PO (18:19)
[2025-01-27] MEDS: FLEXERIL 5 MG PO (18:20)
[2025-01-27 21:11] LABS: Glucose - Point of Care 112 mg/dl (70-99)
[2025-01-27 23:30] VITALS: BP 135/55
[2025-01-28] MEDS: ZOSYN 50 IV ×2 (05:13→12:06)
[2025-01-28 05:30] VITALS: BMI 25.9
[2025-01-28 06:30] LABS: Glucose - Point of Care 73 mg/dl (70-99)
[2025-01-28] MEDS: NOVOLOG FLEXPEN-LOW RESISTANCE SC ×2 (06:31→11:43)
[2025-01-28 08:12] VITALS: BP 165/71
[2025-01-28] MEDS: FOLVITE 1 MG PO (09:27)
[2025-01-28] MEDS: LIPITOR 20 MG PO (09:27)
[2025-01-28] MEDS: ZYLOPRIM 100 MG PO (09:27)
[2025-01-28] MEDS: VITAMIN D3 (cholecalciferol) 25 MCG PO (09:27)
[2025-01-28] MEDS: PROTONIX 40 MG PO (09:27)
[2025-01-28] MEDS: COREG 3.125 MG PO (09:27)
[2025-01-28] MEDS: COGENTIN 1 MG PO (09:27)
[2025-01-28] MEDS: MIRALAX 17 GRAMS PO (09:27)
[2025-01-28] MEDS: LIDOCAINE 4% PATCH 3 PATCH TOPICAL (09:27)
[2025-01-28] MEDS: NEURONTIN 300 MG PO ×2 (09:28→15:27)
[2025-01-28] MEDS: NEUTRA-PHOS POWDER PACKET 250 MG PO (09:28)
[2025-01-28 11:38] LABS: Glucose - Point of Care 110 mg/dl (70-99)
[2025-01-28] MEDS: TYLENOL 650 MG PO (12:49)
--- NOTE | 2025-01-28 14:08 | W.PN.HOSP.TC ---
Today's Communication/Plan
-
dc to SNF
Assessment / Plan
Assessment / Plan
Assessment:
Acute sigmoid colitis
- CT: Acute uncomplicated sigmoid colitis, likely of infectious/inflammatory etiology
- continue Zosyn, day 6/7. Augmentin at discharge
- tolerating LRD
MAELIE
- resume Lasix at dc
- Metformin/NSAIDs stopped
Chronic hypoxic/hypercapnic respiratory failure
COPD 4 L nasal cannula dependent.
JHONATAN Full mask setting of 12 with 4 L nasal cannula.
- continue prn inhaler/neb
Cognitive impairment likely early dementia patient family member mother dementia
Progressive decline in memory over the past 1.5 months forgetting things today called her son Kashmir when his name is Carlos has been talking about getting her wedding down on earlier today thought she saw all stool on the sheets per family
- Patient started ginkgo biloba approximately 1 month ago
Essential HTN
- continue carvedilol 3.125 mg twice daily
Chronic anemia�macrocytic B12 anemia
Hgb 10.4 appears near baseline
- Continue B12 supplement
Chronic thrombocytopenia possibly splenomegaly
- Plt 70 baseline 70�107
Type 2 DM
- holding Metformin
- A1c: 5.0
GERD - PPI
Bipolar disorder
- divalproex acid level within ranger, continue divalproex acid at 1000 mg daily at 1900, Celexa 10 mg daily, Cogentin 1 mg p.o. twice daily
Tardive dyskinesia-family reports hands and tongue shake
- Continue gabapentin, Cogentin
chronic back pain,
herniated disks
fibromyalgia
- Continue gabapentin, Flexeril
Gout
- continue allopurinol 100 mg twice daily
Insomnia
- continue Seroquel 100 mg daily 1900
Class II obesity
- Affects all aspects of care weight loss recommended
DVT ppx: SCDs
Code: Full
More than 30 minutes spent in discharge including
Final examination of the patient
Summarizing hospital stay
Instructions for continuing care to all relevant caregivers
Preparation of discharge records, prescriptions, and referral forms
Total time spent (in minutes): 41
Anticipated Discharge: Today
Subjective/Interval History
-
Date of Service: January 28, 2025
denies any new complaints
Objective Data
-
Vital Signs:
Vital Signs
Temp Pulse Resp BP Pulse Ox
97.8 F 70 20 165/71 98
01/28/25 08:12 01/28/25 08:12 01/28/25 08:12 01/28/25 08:12 01/28/25 08:30
I&O
01/27/25 01/28/25 01/29/25
06:59 06:59 06:59
Intake Total 1140 / 1140 1050 / 1050
Balance 1140 / 1140 1050 / 1050
Physical Exam
-
General: No Apparent Distress
HEENT: Normocephalic and Atraumatic
Respiratory: Negative Wheezes
Cardiac: Regular Rhythm and S1/S2
GI: Soft and Nontender
Musculoskeletal: No Edema
Neuro: AO x 3
Hematologic / Lymphatic: No Lymphadenopathy
Psych: Calm
Data Reviewed
-
Total Time Spent with Patient (in minutes): 41
Labs: Labs Reviewed by me
--- NOTE | 2025-01-28 14:22 | W.DS.TRANS ---
DC Summary - [employer]
-
Discharge Instructions:
Discharge Diagnosis/Procedures Acute colitis
Diet Low Residue
Activity As tolerated
Bathing Restrictions None
Other Services OT,PT
Instructions:
Stand-Alone Forms:
Changes to Home Medications: No
Discharge Medications:
DC Medications w/original date entered in [id number]
albuterol sulfate 2.5 mg/3 mL (0.083 %) solution for nebulization 2.5 mg inhalation R DAILYPRN PRN sob 09/21/24
albuterol sulfate 90 mcg/actuation aerosol inhaler 2 inh inhalation R Q4HPRN PRN sob 09/21/24
allopurinol 100 mg tablet 100 mg PO BID 09/21/24
atorvastatin 20 mg tablet 20 mg PO DAILY 09/21/24
carvedilol 3.125 mg tablet 3.125 mg PO BID 09/21/24
cholecalciferol (vitamin D3) 25 mcg (1,000 unit) tablet 25 mcg PO DAILY 09/21/24
citalopram 10 mg tablet 10 mg PO QPM 09/21/24
divalproex 500 mg tablet,extended release 24 hr 1,000 mg PO DAILY@189909/21/24
folic acid 1 mg tablet 1 mg PO DAILY 09/21/24
furosemide 40 mg tablet 40 mg PO DAILY 09/21/24
metformin 500 mg tablet 500 mg PO AC 09/21/24
naproxen sodium 220 mg tablet (Aleve) 220 mg PO BIDPRN PRN mild pain 09/21/24
omeprazole 20 mg capsule,delayed release 20 mg PO DAILY 09/21/24
polyvinyl alcohol 1.4 % eye drops (Artificial Tears (polyvinyl alcohol)) 1 drp BOTH EYES BIDPRN PRN dry eyes 09/21/24
potassium chloride 20 mEq tablet,extended release 20 meq PO BID 09/21/24
quetiapine 100 mg tablet 100 mg PO DAILY@189909/21/24
benztropine 1 mg tablet 1 mg PO BID 01/22/25
cyclobenzaprine 5 mg tablet 5 mg PO DAILY@1900 01/22/25
gabapentin 600 mg tablet 600 mg PO QID 01/22/25
ginkgo biloba leaf extract 120 mg tablet 120 mg PO DAILY 01/22/25
lidocaine 5 % topical patch 1 - 3 patch topical DAILY lower back & B/L knees 01/22/25
loperamide 2 mg tablet (Anti-Diarrheal (loperamide)) 2 mg PO DAILYPRN PRN diarrhea 01/22/25
nystatin 100,000 unit/gram topical powder (Klayesta) 1 applic topical DAILYPRN PRN apply to abdomen 01/22/25
phenol-phenolate sodium lozenges 1 anoop mucous membrane Q1HPRN PRN sore throat 01/22/25
phenol-phenolate sodium mucosal aerosol spray 2 spray mucous membrane TIDPRN PRN sore throat 01/22/25
sodium chloride 0.65 % nasal spray aerosol (Saline Mist) 1 spray intranasal DAILYPRN PRN dry sinuses 01/22/25
sodium di- and monophosphate-potassium phos monobasic 250 mg tablet (Phospho-Emilie Neutral) 1 tab PO BID 01/22/25
amoxicillin 875 mg-potassium clavulanate 125 mg tablet 1 tab PO Q12H #4 tabs 01/28/25
Home Medication Changes
Pending Results: No
Total time spent discharging patient (in min): 42
--- NOTE | 2025-01-28 15:13 | CM ---
Spoke with attending who stated that patient is medically stable. Placed a call to patient's insurance, [employer]. Spoke with a aircraft sales representative named, Wolf, who confirmed that patient has been approved for SNF at [facility]. Start date 01/28-01/30
Auth number [id number], concurrent review should be called into [phone] Option 5 ask for Susan Dunn.
# For report [phone] and fax # [phone]
Spoke with patient and her friend who was at bedside. Patient agreeable to transfer. Medical necessity completed as well as transfer sheet. Provided to 3e unit secretary. IMM reviewed with patient, on chart.
Attending updated. Patient updating her sons.
Plan: Case management will continue to follow and assist with discharge planning. Transfer to [facility] today.
[2025-01-28 15:40] VITALS: BP 136/61
== END 2025-01-28 16:37 | DRG 683 ==
LOC: 4 EAST ACU 22:26
PROVIDERS: Clinical Nurse Specialist Family Health; General Practice; Student in an Organized Health Care Education/Training Program; ADMITTING PHYSICIAN Hospitalist; ATTENDING PHYSICIAN Internal Medicine; EMERGENCY PHYSICIAN Emergency Medicine; FAMILY PHYSICIAN Emergency Medicine
PROC: 5A09357 Assistance with Respiratory Ventilation, Less than 24 Consecutive Hours, Continuous Positive Airway Pressure (ICD-10-PCS; 2025-01-23)
DX: N17.9 Acute kidney failure, unspecified (principal); F03.918 Unspecified dementia, unspecified severity, with other behavioral disturbance; F03.93 Unspecified dementia, unspecified severity, with mood disturbance; J96.11 Chronic respiratory failure with hypoxia; J96.12 Chronic respiratory failure with hypercapnia; K52.9 Noninfective gastroenteritis and colitis, unspecified; J44.9 Chronic obstructive pulmonary disease, unspecified; I10 Essential (primary) hypertension; E78.00 Pure hypercholesterolemia, unspecified; E11.9 Type 2 diabetes mellitus without complications; I44.7 Left bundle-branch block, unspecified; F31.9 Bipolar disorder, unspecified; M54.9 Dorsalgia, unspecified; G89.29 Other chronic pain; M79.7 Fibromyalgia; K21.9 Gastro-esophageal reflux disease without esophagitis; G47.00 Insomnia, unspecified; D50.9 Iron deficiency anemia, unspecified; D51.9 Vitamin B12 deficiency anemia, unspecified; E66.812 Obesity, class 2; Z99.81 Dependence on supplemental oxygen; G47.33 Obstructive sleep apnea (adult) (pediatric); R16.1 Splenomegaly, not elsewhere classified; D69.6 Thrombocytopenia, unspecified; G24.01 Drug induced subacute dyskinesia; M10.9 Gout, unspecified; Z68.25 Body mass index [BMI] 25.0-25.9, adult; Z79.84 Long term (current) use of oral hypoglycemic drugs
CPT/HCPCS: 70450; 74176; 80048; 80053; 80164; 81003; 81015; 82962; 83036; 84443; 84484; 85025; 85027; 85610; 85730; 87086; 93005; 94640; 94660; 96360; 97129; 97167; 97530; 99285

== ENCOUNTER 2025-05-29 20:27 | Inpatient (IN) | payer OTHER, SELFPAY ==
[2025-05-29] VITALS (7 sets, daily range): BP systolic 121–153; BP diastolic 63–79; BMI 24.0
[2025-05-29] MEDS: TYLENOL/FEVERALL 650 MG RECTAL (12:29)
[2025-05-29 12:47] LABS: Urine Character Clear (Clear)
[2025-05-29 12:49] LABS: Hematocrit 37.4 % (37.0-47.0); Hemoglobin 12.6 g/dL (12.0-16.0); Mean Corp Hgb Conc. 33.7 g/dL (33.0-37.0); Mean Corpuscular Volume 100.8 fL (81.0-99.0); Nucleated Red Blood Cells % 0 %; Platelet Count 185 10^3/uL (130-400); Red Cell Dist. Width 13.9 % (11.5-14.5)
[2025-05-29 13:03] LABS: ALT (SGPT) < 10 U/L (0-35); AST (SGOT) 23 U/L (14-36); Albumin 3.4 g/dl (3.5-5.0); Alkaline Phosphatase 178 U/L (38-126); Blood Urea Nitrogen 15 mg/dl (7-17); Calcium 9.0 mg/dl (8.4-10.2); Carbon Dioxide 32 mmol/L (22-30); Chloride 98 mmol/L (98-107); Glucose 113 mg/dl (70-99); Magnesium 1.8 mg/dl (1.6-2.3); Potassium 4.1 mmol/L (3.5-5.1); Sodium 137 mmol/L (135-145); Total Protein 6.2 g/dl (6.3-8.2); eGFR 39.97
[2025-05-29 13:24] LABS: COVID-19 Antigen Negative (Negative)
[2025-05-29] MEDS: NSS 1000 IV ×2 (17:00→23:46)
--- NOTE | 2025-05-29 19:19 | ED.GENMED ---
History of Present Illness
<Tim Hogan Jr., PA-C - Last Filed: 05/29/25 19:23>
General
Chief Complaint: Fever
Source: patient and family
Exam Limitations: altered mental status
Time Seen by Provider: 05/29/25 15:10
Nursing documentation reviewed up to this point in time: agreed with
History of Present Illness
History of Present Illness:
74-year-old female past medical history of CAD hypertension hyperlipidemia COPD, diabetes presenting to the emergency department today with increased weakness fatigue difficulty ambulating as well as swelling to the right side of the face worsening
over the past few days. Denies any urinary symptoms abdominal pain chest pain shortness of breath.
Past History
<REAGAN Shelton Jr. Last Filed: 05/29/25 19:23>
Past History
ED Past Medical History: COPD, HTN, Hypercholesterolemia, NIDDM and Other (Known left bundle branch block)
ED Past Surgical History: Cholecystectomy, , Gynecological (Hysterectomy) and Orthopedic
Review of Systems
<REAGAN Shelton Jr. Last Filed: 05/29/25 19:23>
Review of Systems
Allergies reviewed?: Yes
All Other Systems: ROS reviewed and negative except as documented in HPI and ROS
Phy Exam
<REAGAN Shelton Jr. Last Filed: 05/29/25 19:23>
Physical Exam
Physical Exam:
GENERAL: Alert , in no apparent distress
EYE: pupils equal and reactive
NECK: Supple, no significant adenopathy.
ENT: Significant swelling to the right side of the face and the right cheek extending to the right lateral neck o/p clr, mmm.
CARDIAC: Regular rate and rhythm .
LUNGS: Clear breath sounds bilaterally, no acute respiratory distress, no wheezes/rales/rhonchi
ABDOMEN: Soft, without focal tenderness, no r/g, no cvat
NEUROLOGICAL: Alert does seem intermittently somewhat confused. Claims to be weak in all extremities.
SKIN: Warm and dry, skin intact.
MUSCULOSKELETAL: No edema, well perfused.
PSYCH: Normal and appropriate interaction.
Sepsis
<Tim Hogan Jr., PA-C - Last Filed: 05/29/25 19:23>
Sepsis Screening
Sepsis Assessment: Sepsis Ruled Out
Sepsis Screen
Sepsis Screen: Sepsis Ruled Out
Date: 05/29/25
Time: 19:22
<Tala Gonzales MD - Last Filed: 05/29/25 20:16>
Sepsis Screen
Sepsis Screen: Sepsis Ruled Out
Date: 05/29/25
Time: 20:14
Course
<Tim Hogan Jr., PA-C - Last Filed: 05/29/25 19:23>
Orders/Labs/Results
Orders:
Orders
05/29/25 12:28
Acetaminophen [Tylenol/Feverall] 650 mg RECTAL NOW STA
05/29/25 12:34
COVID-19 Antigen Urgent
Source: Nasal Swab
Complete Blood Count/With Diff Urgent
Comprehensive Metabolic Panel Urgent
Lactic Acid Urgent
Magnesium Urgent
Urinalysis Reflex To Culture Urgent
Date Specimen was Collected: 05/29/25
Time Specimen was Collected: 12:32
Blood Culture Urgent
PAULINE Source: Blood/Venous
Specimen Description:
Date Specimen was Collected: 05/29/25
Time Specimen was Collected: 12:32
Influenza A+B Rapid Molecular Urgent
PAULINE Source: Nasal Swab
Specimen Description:
Date Specimen was Collected: 05/29/25
Time Specimen was Collected: 12:32
05/29/25 15:[address] Facial Bones W/ Iv Contrast Urgent
Comment:
Reason For Exam: right facila swelling fever ams
CT Head W/o Iv Contrast Urgent
Comment:
Reason For Exam: head pain
05/29/25 17:29
0.9% Sodium Chloride 1000 ml [Nss] 1,000 ml IV BOLUS
05/29/25 19:13
Blood Culture Urgent
PAULINE Source: Blood/Venous
Specimen Description:
05/29/25 19:20
EKG [Electrocardiogram (*1)] Urgent
Reason for Study: Fatigue / Weakness
EKG- Treatment ONCE
05/29/25 19:26
Ampicillin/Sulbactam 3 G [Unasyn] 3 gm 0.9% Sodium Chloride 100 ml [Nss] 100 ml IV NOW
Abnormal Lab Results
05/29/25
12:34
WBC 17.1 H 10^3/uL
(4.8-10.8)
RBC 3.71 L 10^6/uL
(4.20-5.40)
MCV 100.8 H fL
(81.0-99.0)
MCH 34.0 H pg
(27.0-31.0)
Abs Immat Gran (auto) 0.1 H 10^3/uL
(0-0.05)
Absolute Neuts (auto) 14.3 H 10^3/uL
(1.4-6.5)
Absolute Monos (auto) 1.0 H 10^3/uL
(0.1-0.6)
Immature Gran % 0.6 H %
(0-0.5)
Neutrophils % 84.1 H %
(42.2-75.2)
Lymphocytes % 8.4 L %
(20.5-51.1)
Carbon Dioxide 32 H mmol/L
(22-30)
Creatinine 1.4 H mg/dL
(0.6-1.0)
Glucose 113 H mg/dl
(70-99)
Alkaline Phosphatase 178 H U/L
(38-126)
Total Protein 6.2 L g/dl
(6.3-8.2)
Albumin 3.4 L g/dl
(3.5-5.0)
05/29/25 12:34
05/29/25 12:34
Vital Signs
Initial and Last Documented VS:
Initial Vital Signs
Pulse Resp Pulse Ox
104 16 97
05/29/25 12:18 05/29/25 12:18 05/29/25 12:18
Last Documented Vital Signs
Temp Pulse Resp BP Pulse Ox
99.2 F 100 17 127/65 97
05/29/25 19:13 05/29/25 19:45 05/29/25 19:45 05/29/25 19:03 05/29/25 19:45
<Tala Gonzales MD - Last Filed: 05/29/25 20:16>
Orders/Labs/Results
Orders:
Orders
05/29/25 12:28
Acetaminophen [Tylenol/Feverall] 650 mg RECTAL NOW STA
05/29/25 12:34
COVID-19 Antigen Urgent
Source: Nasal Swab
Complete Blood Count/With Diff Urgent
Comprehensive Metabolic Panel Urgent
Lactic Acid Urgent
Magnesium Urgent
Urinalysis Reflex To Culture Urgent
Date Specimen was Collected: 05/29/25
Time Specimen was Collected: 12:32
Blood Culture Urgent
PAULINE Source: Blood/Venous
Specimen Description:
Date Specimen was Collected: 05/29/25
Time Specimen was Collected: 12:32
Influenza A+B Rapid Molecular Urgent
PAULINE Source: Nasal Swab
Specimen Description:
Date Specimen was Collected: 05/29/25
Time Specimen was Collected: 12:32
05/29/25 15:23
CT Facial Bones W/ Iv Contrast Urgent
Comment:
Reason For Exam: right facila swelling fever ams
CT Head W/o Iv Contrast Urgent
Comment:
Reason For Exam: head pain
05/29/25 17:29
0.9% Sodium Chloride 1000 ml [Nss] 1,000 ml IV BOLUS
05/29/25 19:13
Blood Culture Urgent
PAULINE Source: Blood/Venous
Specimen Description:
05/29/25 19:20
EKG [Electrocardiogram (*1)] Urgent
Reason for Study: Fatigue / Weakness
EKG- Treatment ONCE
05/29/25 19:26
Ampicillin/Sulbactam 3 G [Unasyn] 3 gm 0.9% Sodium Chloride 100 ml [Nss] 100 ml IV NOW
Abnormal Lab Results
05/29/25
12:34
WBC 17.1 H 10^3/uL
(4.8-10.8)
RBC 3.71 L 10^6/uL
(4.20-5.40)
MCV 100.8 H fL
(81.0-99.0)
MCH 34.0 H pg
(27.0-31.0)
Abs Immat Gran (auto) 0.1 H 10^3/uL
(0-0.05)
Absolute Neuts (auto) 14.3 H 10^3/uL
(1.4-6.5)
Absolute Monos (auto) 1.0 H 10^3/uL
(0.1-0.6)
Immature Gran % 0.6 H %
(0-0.5)
Neutrophils % 84.1 H %
(42.2-75.2)
Lymphocytes % 8.4 L %
(20.5-51.1)
Carbon Dioxide 32 H mmol/L
(22-30)
Creatinine 1.4 H mg/dL
(0.6-1.0)
Glucose 113 H mg/dl
(70-99)
Alkaline Phosphatase 178 H U/L
(38-126)
Total Protein 6.2 L g/dl
(6.3-8.2)
Albumin 3.4 L g/dl
(3.5-5.0)
05/29/25 12:34
05/29/25 12:34
Vital Signs
Initial and Last Documented VS:
Initial Vital Signs
Pulse Resp Pulse Ox
104 16 97
05/29/25 12:18 05/29/25 12:18 05/29/25 12:18
Last Documented Vital Signs
Temp Pulse Resp BP Pulse Ox
99.2 F 100 17 127/65 97
05/29/25 19:13 05/29/25 19:45 05/29/25 19:45 05/29/25 19:03 05/29/25 19:45
<Tim Hogan Jr., PA-C - Last Filed: 05/29/25 19:23>
MDM/Problems Addressed
MDM/Problems Addressed:
74-year-old female presenting to the emergency department today with concerns of generalized weakness fatigue worsening over the past few days coinciding with right sided facial swelling comfort. Here patient is slightly tachycardic on arrival to
1.1 no significant temperature normal blood pressure other labs unremarkable urinalysis normal COVID-negative. CT scan confirming parotitis concerning patient's associated potential infectious symptoms plan to start IV antibiotics and admit
considering patient seems to be tyrell condition to go home at this point.
<Tim Hogan Jr., PA-C - Last Filed: 05/29/25 19:23>
*Pulse Oximetry
SaO2: 98
Nasal Cannula flow liters per minute: 4
Oxygen Mode of Delivery: Room air
Patient hypoxic: no (98)
*Critical Care Note
Total Time (30-74mins, 75-104mins- exclusive of procedures): Not Applicable
ED Attending Note
<Tim Hogan Jr., PA-C - Last Filed: 05/29/25 19:23>
-
Portions of this chart may have been created with voice recognition software.� Occasional wrong word or��sound alike� substitutions may have occurred due to the inherent limitations of voice recognition software.
<Tala Gonzales MD - Last Filed: 05/29/25 20:16>
ED Attending Note
Patient seen and examined by attending physician: Yes
I performed the substantive portion of visit, reviewed & personally made and approve the management plan that is documented in note by myself or ANNMARIE.: Yes
ED Attending Note:
74 yr old female with R facial swelling, increasing weakness. NO f/c/cp/sob/trouble swallowing/otto ein voice. On exam, marked R facial swelling with ttp and mild overlying erythema at R parotid area, no submental/intraoral swelling, no
stridor/drool/lip or otngue swelling or other airway related findings. Pt to be admitted for iv abx, case management, etc. Not septic appearing.
Discharge Plan
Departure
Patient Disposition: Admit
Date of Disposition: 05/29/25
Time of Disposition: 19:22
Admit to: Med/Surg
Admit to doctor: Faisal
Presentation/result/management discussed w/ accepting MD/DO: Hospitalist
Patient with high blood pressure during this ER visit?: No
Condition: Good
Covid-19: Not Applicable
Discharge Problem:
Acute parotitis, Generalized weakness
Prescriptions:
No Action
furosemide 40 mg Tablet
40 mg PO DAILY
metformin 500 mg Tablet
500 mg PO TID
atorvastatin 20 mg Tablet
20 mg PO DAILY
albuterol sulfate 2.5 mg /3 mL (0.083 %) solution for nebulization
2.5 mg inhalation R DAILYPRN PRN (Reason: sob)
citalopram 10 mg Tablet
10 mg PO QPM
polyvinyl alcohol [Artificial Tears (polyvin alc)] 1.4 % Drops
1 drp BOTH EYES BIDPRN PRN (Reason: dry eyes)
allopurinol 100 mg Tablet
100 mg PO BID
quetiapine 100 mg Tablet
100 mg PO DAILY@1900
carvedilol 3.125 mg Tablet
3.125 mg PO BID
naproxen sodium [Aleve] 220 mg Tablet
220 mg PO BIDPRN PRN (Reason: mild pain)
divalproex 500 mg Tablet Extended Release 24 Hr
1,000 mg PO BID
omeprazole 20 mg Capsule,Delayed Release(Dr/Ec)
20 mg PO DAILY
folic acid 1 mg Tablet
1 mg PO DAILY
albuterol sulfate 90 mcg/actuation HFA aerosol inhaler
2 inh INHALATION R Q4HPRN PRN (Reason: sob)
cholecalciferol (vitamin D3) 25 mcg (1,000 unit) Tablet
25 mcg PO DAILY
potassium chloride 20 mEq Tablet Extended Release
20 meq PO BID
gabapentin 600 mg Tablet
600 mg PO TID
Phospho-Emilie 250 Neutral 250 mg Tablet
1 tab PO BID
nystatin [Klayesta] 100,000 unit/gram Powder
1 applic TOPICAL DAILYPRN PRN (Reason: apply to abdomen)
cyclobenzaprine 5 mg Tablet
5 mg PO DAILY@1900
Saline Mist 0.65 % Aerosol,[place]ett
1 spray INTRANASAL DAILYPRN PRN (Reason: dry sinuses)
Referrals:
Jeaneth Pizano MD [Family Provider, Family Practice]
Interventions
Interventions:
*Risk Screen - Suicide Last Done: 05/29/25 12:18
*General Assessment Last Done: 05/29/25 12:18
*Neglect/Abuse Screening Last Done: 05/29/25 12:18
*ED COVID-19 Vaccine History Last Done: 05/29/25 12:36
*ED Influenza Vaccine History Last Done: 05/29/25 12:36
ED-Skin Assessment Last Done: 05/29/25 12:36
Discharge Date and Time
Print Language: CZECH
[2025-05-29] MEDS: UNASYN IV (19:36)
--- NOTE | 2025-05-29 19:48 | HPS.HSE ---
Family Physician
-
Family Physician: Jeaneth Pizano
Chief Complaint
-
Weakness, Confusion, Facial Swelling
History of Present Illness
Patient is a 74y F with PMH significant for Bipolar disorder, hypertension, DM-II and COPD on chronic O2 who presents to ED for evaluation of weakness, confusion and facial swelling. History obtained from patient and her sons at the bedside.
Family notes that patient has been gradually weaker over the past 1 1/2 weeks or so. She typically walks with a rolling walker, but has become more dependent on assistance of late. She has seemed more confused than usual. Last night they noted a
mild fullness over the R face / cheek area. Patient removed her CPAP at night and complained of ear pain. This AM sons noted markedly swollen and red face / cheek. Patient was somnolent and not speaking at all.
She was brought to the ED for further evaluation and treatment.
Medical History
Past Medical History
Past Medical History: Reports Other
Additional Past Medical History:
Hypertension
DM-II
COPD with Chronic Hypoxemia (4 lpm)
JHONATAN on CPAP
Bipolar Disorder
Endometrial Carcinoma
LBBB
CKD III
Past Surgical History: Reports Other
Additional Past Surgical History:
Hysterectomy
Cholecystectomy
Social History
Tobacco: Non-smoker
Alcohol: None
Drug: None
Living: With Family
Family History
Family History: Not pertinent
Allergies / Home Medications
Allergies reflects when Allergies were last updated in [facility].
Home Medications with original date entered in [facility]
Allergy/Medication List:
Allergies
Allergy/AdvReac Type Severity Reaction Status Date / Time
fish oil Allergy Rash Verified 01/22/25 23:28
heparin Allergy Anaphylaxis Verified 01/22/25 23:28
Home Medications
albuterol sulfate 2.5 mg/3 mL (0.083 %) solution for nebulization 2.5 mg inhalation R DAILYPRN PRN sob 09/21/24
albuterol sulfate 90 mcg/actuation aerosol inhaler 2 inh inhalation R Q4HPRN PRN sob 09/21/24
allopurinol 100 mg tablet 100 mg PO BID 09/21/24
atorvastatin 20 mg tablet 20 mg PO DAILY 09/21/24
carvedilol 3.125 mg tablet 3.125 mg PO BID 09/21/24
cholecalciferol (vitamin D3) 25 mcg (1,000 unit) tablet 25 mcg PO DAILY 09/21/24
citalopram 10 mg tablet 10 mg PO QPM 09/21/24
divalproex 500 mg tablet,extended release 24 hr 1,000 mg PO BID 09/21/24
folic acid 1 mg tablet 1 mg PO DAILY 09/21/24
furosemide 40 mg tablet 40 mg PO DAILY 09/21/24
metformin 500 mg tablet 500 mg PO TID 09/21/24
naproxen sodium 220 mg tablet (Aleve) 220 mg PO BIDPRN PRN mild pain 09/21/24
omeprazole 20 mg capsule,delayed release 20 mg PO DAILY 09/21/24
polyvinyl alcohol 1.4 % eye drops (Artificial Tears (polyvinyl alcohol)) 1 drp BOTH EYES BIDPRN PRN dry eyes 09/21/24
potassium chloride 20 mEq tablet,extended release 20 meq PO BID 09/21/24
quetiapine 100 mg tablet 100 mg PO DAILY@189909/21/24
cyclobenzaprine 5 mg tablet 5 mg PO DAILY@189901/22/25
gabapentin 600 mg tablet 600 mg PO TID 01/22/25
nystatin 100,000 unit/gram topical powder (Klayesta) 1 applic topical DAILYPRN PRN apply to abdomen 01/22/25
sodium chloride 0.65 % nasal spray aerosol (Saline Mist) 1 spray intranasal DAILYPRN PRN dry sinuses 01/22/25
sodium di- and monophosphate-potassium phos monobasic 250 mg tablet (Phospho-Emilie Neutral) 1 tab PO BID 01/22/25
Review of Systems
-
History Source: Patient and Family
A 12 point ROS was completed and negative except as noted: Yes
Constitutional: Reports Fever and Fatigue; Denies Chills
EENT: Reports Sore Throat and Other (Ear Pain / Facial swelling)
Respiratory: Denies Cough or Trouble Breathing
Cardiac: Denies Chest Pain or Palpitations
Abdomen/GI: Reports Diarrhea; Denies Abdominal Pain, Nausea, Vomiting, Bloody Stools or Black Stools
: Denies Dysuria or Frequency
Musculoskeletal: Denies Joint Pain or Edema
Neurological: Reports Headache; Denies Dizzy
Psych: Reports Dementia; Denies Depression or Anxiety
Physical Exam
Vital Signs
Vital Signs
Temp Pulse Resp BP Pulse Ox
99.2 F 103 12 127/65 98
05/29/25 19:13 05/29/25 19:03 05/29/25 19:03 05/29/25 19:03 05/29/25 19:20
Physical Exam
General: Other (74y F in mild distress due to discomfort.)
HEENT: Other (R facial swelling from the R ear to the angle of the mandible. Firm / indurated, tender, erythematous. No fluctuance appreciated.)
Respiratory: Clear; No Wheezes, Rales or Rhonchi
Cardiac: S1/S2 and Regular Rhythm; No Murmur
GI: Soft, Non Tender, Non Distended and Normal Bowel Sounds
Musculoskeletal: No Clubbing, No Cyanosis and No Edema
Neuro: Awake, Alert and Nonfocal/grossly intact; No Oriented
Laboratory Results
-
05/29/25 12:34
05/29/25 12:34
Laboratory Results
Lactic Acid 1.4 mmol/L (0.7-2.0) 05/29/25 12:34
Total Bilirubin 0.6 mg/dl (0.2-1.3) 05/29/25 12:34
AST 23 U/L (14-36) 05/29/25 12:34
ALT < 10 U/L (0-35) 05/29/25 12:34
Alkaline Phosphatase 178 U/L (38-126) H 05/29/25 12:34
Impression/Plan
-
A/P: Patient is a 74y F with PMH significant for COPD on chronic O2, JHONATAN on CPAP, HTN and DM-II who presents to ED for evaluation of weakness, increased confusion and R facial swelling.
Right Parotitis - Likely Suppurative
Acute TME secondary to the above
Sepsis secondary to the above
- Admit for further evaluation and treatment.
- Patient presents with exam and CT evidence of significant / rapidly progressive R parotitis with associated increased confusion, lethargy, nonverbal state this afternoon.
- Continue IV abx with Unasyn.
- Supportive care including IVFs, pain control, etc.
- Follow for clinical improvement.
- Follow for return to baseline mental / functional status with treatment of underlying infection.
COPD
Chronic Hypoxemic Respiratory Failure
JHONATAN on CPAP
- Stable. No wheezing on exam. No cough / respiratory complaints.
- Continue supplemental O2 as needed.
- Would hold on CPAP for now given facial tenderness / swelling - doubt it will be well-tolerated.
- Try again once parotitis symptoms are improving.
- Continue inhaled medications.
Benign Hypertension
- Continue usual home medications.
DM-II
- Stable. Hold metformin acutely.
- Follow glucose and cover with SSI as needed.
- Update A1C.
CKD III
- Stable. Renal function is at / near known baseline.
- Follow for any changes.
Bipolar Disorder
Tardive Dyskinesia
Suspected Senile Dementia
- Continue current psychotropic med regimen.
- Family notes 'some memory problems' but not to current extent.
- Likely a degree of progressive dementia here as well.
Fibromyalgia
- Continue gabapentin.
DVT Prophylaxis: SCDs
Code Status: Full
--- NOTE | 2025-05-30 00:21 | PTCARENOTE ---
Patient received from ED. Oriented to self and place only, confused. Call mckinney within reach, bed alarm is working.
[2025-05-30] MEDS: UNASYN IV ×4 (02:22→20:44)
--- NOTE | 2025-05-30 07:37 | W.PN.HOSP.TC ---
Today's Communication/Plan
-
cont IV abx
pain control
ENT eval
gentle IVF support
Artificial Saliva
ok to dc routine fingersticks (patient currently non-diabetic with good sugar control)
Assessment / Plan
Assessment / Plan
Physical Exam
General: no acute distress, appears comfortable
HEENT: R facial swelling/tenderness from the R ear to the angle of the mandible. Hard of hearing
Respiratory: Clear; No Wheezes, Rales or Rhonchi. Stable respiratory status on baseline 4L
Cardiac: S1/S2 and Regular Rhythm; No Murmur
GI: Soft, Non Tender, Non Distended and Normal Bowel Sounds
Musculoskeletal: No Clubbing, No Cyanosis and No Edema
Neuro: AOx3 conversant coherent
Psych: Calm
A/P: Patient is a 74y F with PMH significant for COPD on chronic O2, JHONATAN on CPAP, HTN and DM-II who presents to ED for evaluation of weakness, increased confusion and R facial swelling.
Right Parotitis - Likely Suppurative
Acute TME secondary to the above
Sepsis secondary to the above
- Patient presents with exam and CT evidence of significant / rapidly progressive R parotitis with associated increased AMS (since improved/resolved)
- Continue IV abx with Unasyn
- Gentle IVF hydration
- pain control
- Artificial Saliva QID
- ENT eval requested
COPD
Chronic Hypoxemic Respiratory Failure
JHONATAN on CPAP
- Stable respiratory status on baseline 4L
- swelling tenderness since improved, ok to resume home CPAP as tolerated
- Continue inhaled medications.
Benign Hypertension
- Cont home Coreg, Lasix on hold d/t poor oral intake
reported hx DM-II
- Stable. Hold metformin acutely.
- A1C 4.9 (non-diabetic level)
- sugars well controlled
- ok to dc routine fingersticks
CKD III
- Stable. Renal function is at / near known baseline.
- Follow for any changes.
Bipolar Disorder
Tardive Dyskinesia
Suspected Senile Dementia
- Continue current psychotropic med regimen.
- Family notes 'some memory problems' but not to current extent.
- Likely a degree of progressive dementia here as well.
Fibromyalgia
- Continue gabapentin.
DVT Prophylaxis: SCDs
Code Status: Full
Discussed with patient and patient's son Carlos
I spent a total of 50 minutes with the patient or on the floor. More than 50% of this time involved counseling and coordination of care.
Anticipated Discharge: 24 - 48 hours
Subjective/Interval History
-
Date of Service: May 30, 2025
No acute distress, sitting up comfortably in chair, notable improvement in symptoms. AOx3 conversant coherent. Hard of hearing limiting conversation. Pain improved though right facial area around Parotid gland remains tender swollen. Tolerating
diet. On baseline 4L NC
Objective Data
-
Labs:
Laboratory Results
05/30/25
06:00
WBC Pending
Hgb Pending
Hct Pending
Plt Count Pending
Sodium Pending
Potassium Pending
Chloride Pending
Carbon Dioxide Pending
BUN Pending
Creatinine Pending
Glucose Pending
Calcium Pending
Vital Signs:
Vital Signs
Temp Pulse Resp BP Pulse Ox
98.1 F 104 18 153/79 100
05/29/25 23:35 05/29/25 23:21 05/29/25 23:21 05/29/25 23:21 05/30/25 00:12
[2025-05-30 07:42] VITALS: BP 150/79
[2025-05-30 07:59] LABS: Hematocrit 36.2 % (37.0-47.0); Hemoglobin 12.4 g/dL (12.0-16.0); Mean Corp Hgb Conc. 34.3 g/dL (33.0-37.0); Mean Corpuscular Volume 101.1 fL (81.0-99.0); Platelet Count 140 10^3/uL (130-400); Red Cell Dist. Width 13.8 % (11.5-14.5)
[2025-05-30 08:04] LABS: Glucose - Point of Care 118 mg/dl (70-99)
[2025-05-30 08:24] LABS: Blood Urea Nitrogen 15 mg/dl (7-17); Calcium 9.3 mg/dl (8.4-10.2); Carbon Dioxide 32 mmol/L (22-30); Chloride 100 mmol/L (98-107); Estimated Creatinine Clearance 40 ml/min; Glucose 122 mg/dl (70-99); Potassium 3.1 mmol/L (3.5-5.1); Sodium 140 mmol/L (135-145); eGFR 53.39
[2025-05-30] MEDS: COREG 3.125 MG PO ×2 (08:35→22:02)
[2025-05-30] MEDS: ZYLOPRIM 100 MG PO ×2 (08:35→20:45)
[2025-05-30] MEDS: NEURONTIN 600 MG PO ×3 (08:35→22:02)
[2025-05-30] MEDS: LIPITOR 20 MG PO (08:35)
[2025-05-30] MEDS: DEPAKOTE ER (24 HR RELEASE) 1000 MG PO ×2 (08:48→20:45)
[2025-05-30] MEDS: TORADOL 10 MG IV (08:49)
[2025-05-30] MEDS: FOLVITE PO (08:49)
[2025-05-30 09:11] VITALS: BP 124/79; BP 143/86; PULSE 103; PULSE 105; O2SAT 96
[2025-05-30 09:22] LABS: Glycohemoglobin (HgbA1c) 4.9 % (4.0-5.9)
[2025-05-30] MEDS: KCL ELIXIR 40 MEQ PO (09:29)
[2025-05-30 09:35] LABS: Magnesium 1.7 mg/dl (1.6-2.3)
--- NOTE | 2025-05-30 10:20 | PTCARENOTE ---
Patient OOB to chair with max assist x2 and walker. Patient tolerated sitting up for 3 hours. Patient on 4L NC 98%, after ambulation sat dropped to 87%, patient dyspneic. Patient c/o 5/10 right cheek pain. Toradol given with good relief. Patient is
oriented x2, but forgetful. Speech is garbled. Patient able to swallow pills without any signs or symptoms of difficulty. Patient tolerating clear liquid diet.
--- NOTE | 2025-05-30 11:07 | CM ---
Spoke w/ patient's sons, Vadim. Initial assessment completed. Patient is a 74y F with PMH significant for Bipolar disorder, hypertension, DM-II and COPD on chronic O2 who presents to ED for evaluation of weakness, confusion and
facial swelling.
Patient resides w/ her sons in a single story home, 5 steps and ramp access. Patient independent w/ rollator at baseline. Has additional w/c, home O2 through [facility], a commode, bed rail, and tub grab bar. [facility] this year,
[facility] hx.
Address, points of contact and insurance verified
PCP: Jeaneth Pizano
Pharmacy: [facility]
Therapy recommending SNF. Per sons, would like to take patient home w/ home care, declining SNF at this time
Plan: Home w/ home care
[2025-05-30 11:59] LABS: Glucose - Point of Care 144 mg/dl (70-99)
[2025-05-30] MEDS: OASIS 1 SPRAY PO ×3 (12:24→22:48)
--- NOTE | 2025-05-30 13:12 | CON.MD ---
Consultation - Medical
-
Pt seen for right parotitis; full consult dictated.
She certainly has acute parotitis likely as a result of decreased oral intake associated with mental status changes.
Agree with antibiotics but would also urge vigorous hydration, sialogogues, and massaging the gland. Have discussed this with her son at bedside.
This will likely take a few days to improve to the point where she may be discharged.
[2025-05-30] MEDS: OASIS 2 SPRAY PO (13:39)
[2025-05-30 15:40] VITALS: BP 129/71
[2025-05-30] MEDS: NSS 1000 IV (16:12)
[2025-05-30] MEDS: TYLENOL 650 MG PO (16:32)
--- NOTE | 2025-05-30 16:54 | PTOTSP ---
ST HOLD NOTE
Received and appreciate JUMP IRON MACHINE PRESSER consultation. Attempted to see pt; however, per RN, pt obtunded and unable to awaken to an alert enough state to safely and meaningfully participated in exam at this time. Additionally, pt requiring rest and use of CPAP
due to multiple nights not sleeping and not using CPAP. Will hold on JUMP IRON MACHINE PRESSER evaluation at this time. Recommending keeping pt NPO except critical meds only if pt is fully awake/alert - at RN discretion. JUMP IRON MACHINE PRESSER to f/u again tomorrow to re-attempt evaluation.
[2025-05-30 17:01] LABS: Glucose - Point of Care 132 mg/dl (70-99)
[2025-05-30 21:40] LABS: Glucose - Point of Care 100 mg/dl (70-99)
[2025-05-30] MEDS: SEROQUEL PO (22:24)
[2025-05-30 23:00] VITALS: BP 147/73
--- NOTE | 2025-05-30 23:54 | PTCARENOTE ---
Patient difficult to wake up. Patient open her eyes was put in a sitting position in bed and was able to drink, safely, a few teaspoons of water with her medications.
[2025-05-31] MEDS: UNASYN IV ×4 (02:06→20:31)
[2025-05-31 07:46] LABS: Hematocrit 29.5 % (37.0-47.0); Hemoglobin 10.0 g/dL (12.0-16.0); Mean Corp Hgb Conc. 33.9 g/dL (33.0-37.0); Mean Corpuscular Volume 101.4 fL (81.0-99.0); Red Cell Dist. Width 14.3 % (11.5-14.5)
[2025-05-31 07:49] VITALS: BP 152/66
[2025-05-31 07:57] LABS: Blood Urea Nitrogen 19 mg/dl (7-17); Calcium 9.4 mg/dl (8.4-10.2); Carbon Dioxide 30 mmol/L (22-30); Chloride 104 mmol/L (98-107); Estimated Creatinine Clearance 40 ml/min; Glucose 83 mg/dl (70-99); Magnesium 1.9 mg/dl (1.6-2.3); Potassium 3.7 mmol/L (3.5-5.1); Sodium 137 mmol/L (135-145); eGFR 53.39
[2025-05-31] MEDS: NEURONTIN 600 MG PO ×3 (08:22→21:55)
[2025-05-31] MEDS: LIPITOR 20 MG PO (08:22)
[2025-05-31] MEDS: ZYLOPRIM 100 MG PO ×2 (08:22→20:31)
[2025-05-31] MEDS: DEPAKOTE ER (24 HR RELEASE) 1000 MG PO ×2 (08:22→20:30)
[2025-05-31] MEDS: COREG 3.125 MG PO ×2 (08:22→20:31)
[2025-05-31] MEDS: OASIS 2 SPRAY PO ×4 (08:24→21:55)
[2025-05-31] MEDS: FOLVITE 1 MG PO (08:35)
--- NOTE | 2025-05-31 08:37 | W.PN.HOSP.TC ---
Today's Communication/Plan
-
cont abx
follow cultures
ST/PT/OT
diet advanced to pureed
fingerstick monitoring Hypoglycemia
Assessment / Plan
Assessment / Plan
Physical Exam
General: no acute distress, appears comfortable
HEENT: R facial swelling/tenderness from the R ear to the angle of the mandible- significantly improved. Hard of hearing
Respiratory: Clear; No Wheezes, Rales or Rhonchi. Stable respiratory status on baseline 4L
Cardiac: S1/S2 and Regular Rhythm; No Murmur
GI: Soft, Non Tender, Non Distended and Normal Bowel Sounds
Musculoskeletal: No Clubbing, No Cyanosis and No Edema
Neuro: AOx3 conversant coherent
Psych: Calm
A/P: Patient is a 74y F with PMH significant for COPD on chronic O2, JHONATAN on CPAP, HTN and DM-II who presents to ED for evaluation of weakness, increased confusion and R facial swelling.
Right Parotitis - Likely Suppurative
Acute TME secondary to the above
Sepsis secondary to the above
- Patient presents with exam and CT evidence of significant / rapidly progressive R parotitis with associated increased AMS (since improved/resolved)
- Continue IV abx with Unasyn
- Gentle IVF hydration
- pain control
- Artificial Saliva QID
- ENT eval appreciated
-ST eval appreciated pureed diet
-PT/OT eval appreciated SNF rehab
COPD
Chronic Hypoxemic Respiratory Failure
JHONATAN on CPAP
- Stable respiratory status on baseline 4L
- swelling tenderness since improved, ok to resume home CPAP as tolerated
- Continue inhaled medications.
Benign Hypertension
- Cont home Coreg, Lasix on hold d/t poor oral intake
reported hx DM-II
Intermittent Hypoglycemia
- Stable. Hold metformin acutely (consider discontinuing on discharge, no indication for it at this time)
- A1C 4.9 (non-diabetic level)
- routine fingersticks to monitor hypoglycemia at this time
- encourage oral intake
CKD III
- Stable. Renal function is at / near known baseline.
- Follow for any changes.
Bipolar Disorder
Tardive Dyskinesia
Suspected Senile Dementia
- Continue current psychotropic med regimen.
- Family notes 'some memory problems' but not to current extent.
- Likely a degree of progressive dementia here as well.
Fibromyalgia
- Continue gabapentin.
DVT Prophylaxis: SCDs
Code Status: Full
Discussed with patient and patient's sons Carlos and Johnnie
I spent a total of 45 minutes with the patient or on the floor. More than 50% of this time involved counseling and coordination of care.
Anticipated Discharge: 24 - 48 hours
Subjective/Interval History
-
Date of Service: May 31, 2025
No acute distress, sitting up comfortably in chair, swelling notably improved.
Objective Data
-
Labs:
Laboratory Results
05/31/25
07:12
WBC 10.9 H
Hgb 10.0 L
Hct 29.5 L
Plt Count Pending
Sodium 137
Potassium 3.7
Chloride 104
Carbon Dioxide 30
BUN 19 H
Creatinine 1.1 H
Glucose 83
Calcium 9.4
Vital Signs:
Vital Signs
Temp Pulse Resp BP Pulse Ox
97.5 F 81 16 147/73 100
05/30/25 23:00 05/30/25 23:00 05/30/25 23:00 05/30/25 23:00 05/30/25 23:00
I&O
05/30/25 05/31/25 06/01/25
06:59 06:59 06:59
Intake Total 1919
Balance 1919
[2025-05-31] MEDS: NSS 1000 IV (08:38)
[2025-05-31] MEDS: TORADOL 10 MG IV (08:52)
[2025-05-31 08:59] LABS: Platelet Count 86 10^3/uL (130-400)
[2025-05-31 09:10] LABS: Glucose - Point of Care 55 mg/dl (70-99)
[2025-05-31 09:37] LABS: Glucose - Point of Care 62 mg/dl (70-99)
[2025-05-31 10:16] LABS: Glucose - Point of Care 96 mg/dl (70-99)
--- NOTE | 2025-05-31 13:02 | PTOTSP ---
ST Acute Care Evaluation
Pt currently presents with clinical signs of moderate oropharyngeal dysphagia characterized by prolonged mastication with solids and difficulty initiating swallows with advanced solid consistencies, likely 2/2 swelling and pain from acute R
parotiditis. No overt s/s of penetration or aspiration noted at bedside. Pt with known hx of GERD and recent increase in epigastric discomfort, per pt's sons. Pt therefore at elevated risk for post-prandial aspiration.
Recommendations:
- Pureed solids, thin liquids, meds as tolerated.
- General aspiration precautions.
- Reflux precautions: HOB upright during PO intake and for 60 minutes after PO intake; alternate solids/liquids; eat/drink slowly; do not let pt over-eat - let pt stop eating if she feels full or epigastric discomfort as a means to reduce risk for
vomiting and/or post-prandial aspiration.
- SUBSTANCE ABUSE TECHNICIAN to f/u re: diet tolerance, use of compensatory strategies, and re-assessment for candidacy for further diet upgrades.
- Consider f/u with OP GI upon discharge re: recent increase in/frequent unmanaged epigastric discomfort/distress.
[2025-05-31 13:15] LABS: Glucose - Point of Care 93 mg/dl (70-99)
--- NOTE | 2025-05-31 15:07 | W.PN.ENT ---
Today's Communication
-
As above
Impression / Plan
-
Pt has improved.
Cultures negative.
WBC decreased.
Continue present management
Subjective Data
-
Pt seems to report less pain
Objective Data
-
Vital Signs
Temp Pulse Resp BP Pulse Ox
97.8 F 65 18 152/66 100
05/31/25 07:49 05/31/25 07:49 05/31/25 07:49 05/31/25 07:49 05/31/25 07:49
Intake & Output
05/30/25 05/31/25 06/01/25
06:59 06:59 06:59
Intake:
Oral fluids 1020 / 1020
IV fluids (Total) 660 / 660
IV piggybacks 240 / 240
Other:
How many times incontinent 2
MODERATE amount urine
How many times incontinent 1
SATURATED amount urine
Lab Results
05/31/25 07:12
05/31/25 07:12
Calcium 9.4 mg/dl (8.4-10.2) 05/31/25 07:12
Phosphorus 3.2 mg/dl (2.5-4.5) 05/31/25 07:12
Magnesium 1.9 mg/dl (1.6-2.3) 05/31/25 07:12
Total Bilirubin 0.6 mg/dl (0.2-1.3) 05/29/25 12:34
AST 23 U/L (14-36) 05/29/25 12:34
ALT < 10 U/L (0-35) 05/29/25 12:34
Alkaline Phosphatase 178 U/L (38-126) H 05/29/25 12:34
Urine Color Yellow 05/29/25 12:34
Urine Clarity Clear (Clear) 05/29/25 12:34
Urine pH 6.0 (5.0-9.0) 05/29/25 12:34
Ur Specific Rosanky 1.010 (<1.030) 05/29/25 12:34
Urine Ketones Negative (Negative) 05/29/25 12:34
Cultures negative so far
Physical Exam
-
There is less induration and tenderness of right parotid
[2025-05-31 15:15] VITALS: BP 122/73
[2025-05-31] MEDS: DESENEX/MITRAZOL/ZEASORB 1 APPLIC TOPICAL ×2 (16:52→20:32)
[2025-05-31 17:01] LABS: Glucose - Point of Care 59 mg/dl (70-99)
[2025-05-31 17:53] LABS: Glucose - Point of Care 77 mg/dl (70-99)
[2025-05-31] MEDS: SEROQUEL 100 MG PO (20:31)
[2025-05-31 21:11] LABS: Glucose - Point of Care 51 mg/dl (70-99)
[2025-05-31 21:37] LABS: Glucose - Point of Care 79 mg/dl (70-99)
[2025-05-31 23:06] VITALS: BP 139/53
[2025-06-01 00:20] LABS: Glucose - Point of Care 190 mg/dl (70-99)
[2025-06-01] MEDS: UNASYN IV ×3 (02:21→14:30)
[2025-06-01 03:37] LABS: Glucose - Point of Care 118 mg/dl (70-99)
[2025-06-01 07:46] LABS: Hematocrit 25.8 % (37.0-47.0); Hemoglobin 8.5 g/dL (12.0-16.0); Mean Corp Hgb Conc. 32.9 g/dL (33.0-37.0); Mean Corpuscular Volume 101.6 fL (81.0-99.0); Platelet Count 71 10^3/uL (130-400); Red Cell Dist. Width 14.1 % (11.5-14.5)
[2025-06-01 07:50] VITALS: BP 134/64
[2025-06-01 07:58] LABS: Glucose - Point of Care 88 mg/dl (70-99)
[2025-06-01 08:12] LABS: Blood Urea Nitrogen 18 mg/dl (7-17); Calcium 8.6 mg/dl (8.4-10.2); Carbon Dioxide 32 mmol/L (22-30); Chloride 102 mmol/L (98-107); Estimated Creatinine Clearance 44 ml/min; Glucose 76 mg/dl (70-99); Magnesium 1.9 mg/dl (1.6-2.3); Potassium 3.2 mmol/L (3.5-5.1); Sodium 134 mmol/L (135-145); eGFR 59.86
--- NOTE | 2025-06-01 08:58 | VNURNOTE ---
Addendum entered by Kaity Hansen RN 06/01/25 13:29:
[facility] Resumption referral placed in [facility].
Original Note:
Chart reviewed. Patient is current with [facility]. Will continue to follow hospital course and DC plans.
[2025-06-01] MEDS: LIPITOR 20 MG PO (09:13)
[2025-06-01] MEDS: ZYLOPRIM 100 MG PO (09:13)
[2025-06-01] MEDS: COREG 3.125 MG PO (09:13)
[2025-06-01] MEDS: DEPAKOTE ER (24 HR RELEASE) 1000 MG PO (09:13)
[2025-06-01] MEDS: FOLVITE 1 MG PO (09:37)
[2025-06-01] MEDS: DESENEX/MITRAZOL/ZEASORB 1 APPLIC TOPICAL (09:37)
[2025-06-01] MEDS: OASIS 1 SPRAY PO (09:37)
[2025-06-01] MEDS: NEURONTIN 600 MG PO (09:37)
[2025-06-01] MEDS: KCL ELIXIR 40 MEQ PO (10:00)
--- NOTE | 2025-06-01 10:57 | PTCARENOTE ---
Patient more alert and awake today. Patient c/o 09/08 right cheek discomfort. Tylenol given with good relief. Patient tolerated 75% of pureed breakfast. Patient OOB to chair with assist x2 and walker. Patient able to stand well, but then takes small
shuffling steps to chair. Mouth care done with swabs and mouth wash. RN educated patient's son on frequent mouth care at home. patient's son Johnnie verbalized understanding.
--- NOTE | 2025-06-01 11:59 | W.PN.HOSP.TC ---
Addendum entered and electronically signed by Johnny Rincon MD 06/01/25 12:34:
Leukocytosis resolved. no fever in past 48hrs. erythema resolved.
Original Note:
Today's Communication/Plan
-
Monitor vitals
See plan
Continue with pur�ed diet
Discussed with ENT, transition to p.o. Augmentin
Patient will need ENT follow-up outpatient
Discussed with son
Time of discharge 38 minutes
Assessment / Plan
Assessment / Plan
Physical Exam
General: no acute distress, appears comfortable
HEENT: R facial swelling/tenderness from the R ear to the angle of the mandible- significantly improved. No erythema noted. hard of hearing
Respiratory: Clear; No Wheezes, Rales or Rhonchi. Stable respiratory status on baseline 4L
Cardiac: S1/S2 and Regular Rhythm; No Murmur
GI: Soft, Non Tender, Non Distended and Normal Bowel Sounds
Musculoskeletal: No Clubbing, No Cyanosis and No Edema
Neuro: AOx3 conversant coherent
Psych: Calm
A/P: Patient is a 74y F with PMH significant for COPD on chronic O2, JHONATAN on CPAP, HTN and DM-II who presents to ED for evaluation of weakness, increased confusion and R facial swelling.
Right Parotitis - Likely Suppurative
Acute TME secondary to the above
Sepsis secondary to the above
- Patient presents with exam and CT evidence of significant / rapidly progressive R parotitis with associated increased AMS (since improved/resolved)
- Continue IV abx with Unasyn, transition to p.o. abx
- Gentle IVF hydration
- pain control
- Artificial Saliva QID
- ENT eval appreciated. Discussed with Dr. Patel from ENT and they are okay with patient being discharged with p.o. Augmentin, warm compresses and outpatient followup
-ST eval appreciated pureed diet
-PT/OT eval appreciated SNF rehab. However family appears to rather go home
COPD
Chronic Hypoxemic Respiratory Failure
JHONATAN on CPAP
- Stable respiratory status on baseline 4L
- swelling tenderness since improved, ok to resume home CPAP as tolerated
- Continue inhaled medications.
Benign Hypertension
- Cont home Coreg, Lasix on hold d/t poor oral intake
reported hx DM-II
Intermittent Hypoglycemia
- Stable. Hold metformin acutely (consider discontinuing on discharge, no indication for it at this time)
- A1C 4.9 (non-diabetic level)
- routine fingersticks to monitor hypoglycemia at this time
- encourage oral intake
CKD III
- Stable. Renal function is at / near known baseline.
- Follow for any changes.
Chronic thrombocytopenia
Monitor
Anemia of chronic disease
Monitor
Bipolar Disorder
Tardive Dyskinesia
Suspected Senile Dementia
- Continue current psychotropic med regimen.
- Family notes 'some memory problems' but not to current extent.
- Likely a degree of progressive dementia here as well.
Fibromyalgia
- Continue gabapentin.
DVT Prophylaxis: SCDs
Code Status: Full
Discussed with patient and patient's son. They do not want SNF at this time and wants to rather go home
Anticipated Discharge: Today
Subjective/Interval History
-
Date of Service: June 01, 2025
Denies pain
Objective Data
-
Labs:
Laboratory Results
06/01/25
07:25
WBC 6.1
Hgb 8.5 L
Hct 25.8 L
Plt Count 71 L
Sodium 134 L
Potassium 3.2 L
Chloride 102
Carbon Dioxide 32 H
BUN 18 H
Creatinine 1.0
Glucose 76
Calcium 8.6
Vital Signs:
Vital Signs
Temp Pulse Resp BP Pulse Ox
97.5 F 84 16 134/64 97
06/01/25 07:50 06/01/25 07:50 06/01/25 07:50 06/01/25 07:50 06/01/25 07:50
I&O
05/31/25 06/01/25 06/02/25
06:59 06:59 06:59
Intake Total 1919 1500 / 1500
Balance 1919 1500 / 1500
--- NOTE | 2025-06-01 12:22 | W.DCSUMMARY ---
Discharge Summary
Discharge Data
Date of Admission: 05/29/25
Date of Discharge: 06/01/25
-
Pending Results: No
Hospital Course
74-year-old female with past medical history of COPD on chronic O2, JHONATAN on CPAP, hypertension, diabetes mellitus, CKD, chronic thrombocytopenia, anemia of chronic disease, bipolar disorder, tardive dyskinesia, suspected senile dementia, fibromyalgia
came to the hospital with right facial swelling. CT was consistent with parotitis. Patient also had change in mental status which continued to improve over time. Patient was seen by ENT and was started on IV antibiotics which was later
transitioned to p.o. antibiotics prior to discharge. Prior to discharge, patient leukocytosis continued to improve and in fact was normal on the day of discharge. Patient was also afebrile for at least 48 hours prior to discharge. Given
improvement in her symptoms being afebrile along with improving leukocytosis, I discussed with ENT who deemed patient is stable to be discharged home with close follow-up with them outpatient. Patient was seen by physical therapy who recommended
SNF however patient and family decided to rather go home. Per speech recommendation, patient was started on pur�ed diet which patient instructed to continue on discharge. Since patient symptoms were improving, she was then discharged home with
instructions to follow-up closely with all her physicians outpatient.
Discharge Plan
-
Patient Disposition: Home with Home Care
Discharge Diagnosis/Procedures: Sepsis secondary to right parotitis
Acute toxic metabolic encephalopathy
Chronic hypoxemic respiratory failure
Condition: Fair
Diet: Other diet
Additional Diets: Pur�ed diet
Activity: With assistance and As tolerated
Driving Restrictions: No driving
Blood Work: CBC later this week or next week with primary care provider
Activity Restrictions/Additional Instructions:
Apply warm compresses
Please ensure you drink enough fluids
Can get [id number] medication for dry mouth
Referrals:
Rubio Meade MD [Active, Otology] - in less than 1 week
Jeaneth Pizano MD [Family Provider, Family Practice] - in less than 1 week
Prescriptions:
New
miconazole nitrate [Miconazorb AF] 2 % Powder
1 applic topical BID Qty: 85 0RF
acetaminophen 325 mg Tablet
650 mg PO Q4HPRN PRN (Reason: Mild Pain / Temp > 101) Qty: 0 0RF
amoxicillin-pot clavulanate 875-125 mg tablet
1 tab PO BID Qty: 18 0RF
Lactobacillus acidophilus [Probiotic] 10 billion cell capsule
10,000 mmu cells PO DAILY Qty: 14 0RF
Continued
atorvastatin 20 mg Tablet
20 mg PO DAILY
albuterol sulfate 2.5 mg /3 mL (0.083 %) solution for nebulization
2.5 mg inhalation R DAILYPRN PRN (Reason: sob)
citalopram 10 mg Tablet
10 mg PO QPM
polyvinyl alcohol [Artificial Tears (polyvin alc)] 1.4 % Drops
1 drp BOTH EYES BIDPRN PRN (Reason: dry eyes)
allopurinol 100 mg Tablet
100 mg PO BID
quetiapine 100 mg Tablet
100 mg PO DAILY@1900
carvedilol 3.125 mg Tablet
3.125 mg PO BID
naproxen sodium [Aleve] 220 mg Tablet
220 mg PO BIDPRN PRN (Reason: mild pain)
divalproex 500 mg Tablet Extended Release 24 Hr
1,000 mg PO BID
omeprazole 20 mg Capsule,Delayed Release(Dr/Ec)
20 mg PO DAILY
folic acid 1 mg Tablet
1 mg PO DAILY
albuterol sulfate 90 mcg/actuation HFA aerosol inhaler
2 inh INHALATION R Q4HPRN PRN (Reason: sob)
cholecalciferol (vitamin D3) 25 mcg (1,000 unit) Tablet
25 mcg PO DAILY
potassium chloride 20 mEq Tablet Extended Release
20 meq PO BID
gabapentin 600 mg Tablet
600 mg PO TID
Phospho-Emilie 250 Neutral 250 mg Tablet
1 tab PO BID
nystatin [Klayesta] 100,000 unit/gram Powder
1 applic TOPICAL DAILYPRN PRN (Reason: apply to abdomen)
Saline Mist 0.65 % Aerosol,[place]
1 spray INTRANASAL DAILYPRN PRN (Reason: dry sinuses)
Held
furosemide 40 mg Tablet
40 mg PO DAILY
Hold Instructions: Resume on 06/02/25.
metformin 500 mg Tablet
500 mg PO TID
Hold Instructions: restart when blood sugar high
cyclobenzaprine 5 mg Tablet
5 mg PO DAILY@1900
Hold Instructions: Restart when okay with primary care provider
Discharge Orders:
Discharge Patient (As Directed); Ordered 06/01/25
Ordered By: Johnny Rincon
Discharge Date and Time
Discharge Date/Time: 06/01/25 15:56
Print Language: [place]
[2025-06-01] MEDS: OASIS PO (13:00)
--- NOTE | 2025-06-01 13:39 | CM ---
CM reviewed chart, patient seen bedside with two sons.
CM discussed discharge order placed- sons debating to appeal discharge vs bring patient home- family has decided to bring patient home.
IMM verbally reviewed, provided to son, placed in chart.
Update to [facility] on discharge, patient is a return of care. Sons adamant about patient returning home, patient had a bad experience at SNF.
Sons to transport patient home.
CM will continue to follow for all d.c planning needs.
Plan; home with [facility]
[2025-06-01 13:51] LABS: Glucose - Point of Care 98 mg/dl (70-99)
[2025-06-01 15:00] VITALS: BP 134/66
== END 2025-06-01 15:56 | disposition home health service (06) | DRG 871 ==
LOC: 4 WEST ACU 20:27
PROVIDERS: Internal Medicine; Student in an Organized Health Care Education/Training Program; ADMITTING PHYSICIAN Hospitalist; ATTENDING PHYSICIAN Internal Medicine; CONSULT PHYSICIAN Otolaryngology; EMERGENCY PHYSICIAN Emergency Medicine; FAMILY PHYSICIAN Family Medicine
DX: A41.9 Sepsis, unspecified organism (principal); G92.8 Other toxic encephalopathy; J96.11 Chronic respiratory failure with hypoxia; F03.93 Unspecified dementia, unspecified severity, with mood disturbance; K11.21 Acute sialoadenitis; F31.9 Bipolar disorder, unspecified; G24.01 Drug induced subacute dyskinesia; G47.33 Obstructive sleep apnea (adult) (pediatric); N18.30 Chronic kidney disease, stage 3 unspecified; I12.9 Hypertensive chronic kidney disease with stage 1 through stage 4 chronic kidney disease, or unspecified chronic kidney disease; E11.22 Type 2 diabetes mellitus with diabetic chronic kidney disease; J44.9 Chronic obstructive pulmonary disease, unspecified; Z99.81 Dependence on supplemental oxygen; D63.1 Anemia in chronic kidney disease; M79.7 Fibromyalgia; I44.7 Left bundle-branch block, unspecified; Z90.710 Acquired absence of both cervix and uterus; Z88.8 Allergy status to other drugs, medicaments and biological substances; Z79.899 Other long term (current) drug therapy; Z79.84 Long term (current) use of oral hypoglycemic drugs; E78.00 Pure hypercholesterolemia, unspecified; I25.10 Atherosclerotic heart disease of native coronary artery without angina pectoris; Z11.52 Encounter for screening for COVID-19
CPT/HCPCS: 70450; 70487; 80048; 80053; 81003; 82962; 83036; 83605; 83735; 84100; 85025; 85027; 87040; 87502; 87811; 92610; 93005; 96361; 96374; 97163; 97167; 99285; Q9967